=== PATIENT | male | born 1965 ===

== ENCOUNTER 2021-02-10 07:06 | Day surgery (SDC) | payer OTHER ==
[2021-02-06 16:02] VITALS: BMI 26.4
[2021-02-10] MEDS ORDERED: SODIUM CHLORIDE 0.9% 1,000 ML IV ONE (07:10)
[2021-02-10 07:38] VITALS: RESP 16; TEMP 98.1
[2021-02-10] MEDS ORDERED: fentaNYL (PF) 50 MCG/ML 2 ML AMP ONE (08:34)
[2021-02-10] MEDS ORDERED: LIDOCAINE 1% INJ 10MG/ML (20 ML MDV) ONE (08:36)
[2021-02-10] MEDS ORDERED: VERAPAMIL 2.5 MG/ML 2 ML AMP ONE (08:36)
[2021-02-10] MEDS: MIDAZOLAM 2 MG/2 ML VIAL IV ONE ×2 (08:48→08:51)
[2021-02-10] MEDS ORDERED: LIDOCAINE 1% INJ 10MG/ML (20 ML MDV) SQ ONE (08:48)
[2021-02-10] MEDS ORDERED: fentaNYL (PF) 50 MCG/ML 2 ML AMP IV ONE (08:48)
[2021-02-10] MEDS ORDERED: IOPAMIDOL-250 100ML BTL INTRAARTER ONE (09:11)
[2021-02-10] MEDS ORDERED: IOPAMIDOL-250 50ML BTL INTRAARTER ONE (09:12)
--- NOTE | 2021-02-10 09:24 | P.OP ---
Date of Procedure: 02/10/21 Description of Procedure: Preoperative diagnosis: Right lower extremity claudication with rest pain [place] 4 Postop diagnosis: Same, right superficial femoral artery occlusion and bilateral anterior tibial artery occlusions Procedure: Aortogram with bilateral lower extremity runoffs via left radial artery access under ultrasound guidance Surgeon: Ceasar Anesthesia: Moderate sedation times 23 minutes Estimated blood loss: 5 mL Complications: None Condition: Stable Findings: Aorta: Atherosclerotic, calcific disease throughout without significant stenosis. Bilateral renal arteries are patent without any significant stenosis. Iliacs: Bilateral common iliac, internal iliac and external iliac arteries are calcified and atherosclerotic without any significant stenosis. Femorals: Right common femoral artery with atherosclerotic and calcific disease throughout without any significant stenosis. Profundus is patent. SFA is occluded at the takeoff with significant calcific disease extending throughout with reconstitution [id number] at the popliteal. Left common femoral, p rofunda and superficial femoral artery are atherosclerotic with calcific disease throughout without significant stenosis. Popliteal: Bilateral popliteal arteries are patent with minimal atherosclerotic, calcific disease without any significant stenosis. Tibials: Bilateral tibioperoneal trunk is patent without significant disease. The anterior tibial arteries bilaterally are occluded after the takeoff. Posterior tibial and peroneal arteries are patent with significant atherosclerotic disease throughout. Runoff to the ankle as noted. Operative narrative: After written informed consent was obtained the patient all risks benefits competitions were described the patient is brought to the Scientific Photographer and laid in a supine position. The area of the left wrist was prepped and draped in the usual sterile fashion. Local anesthesia with moderate sedation was performed with continuous pulse ox monitoring and EKG monitoring. Utilizing ultrasound the left radial artery was visualized and shown to be patent without any significant plaque. Utilizing a multipurpose needle under ultrasound guidance the artery was accessed. Guidewire was placed followed by 5-Honduran sheath. 035 Glidewire was then placed into the aorta followed by pigtail catheter. Angiogram was then obtained of the aorta. Catheter was then placed at the bifurcation and lower extremity runoffs were obtained. Once completed all guidewires, catheters and sheaths were removed and pressure was placed for hemostasis. Patient tolerated procedure well was sent to PACU for recovery Plan - Discharge Summary Discharge Rx Participant: No New Discharge Prescriptions: No Action oxyCODONE HCL [oxyCODONE HCL ER] 15 mg PO Q6H amLODIPine [Norvasc] 5 mg PO DAILY Thiamine HCl [Vitamin B-1] 100 mg PO HS QUEtiapine [SEROquel] 200 mg PO HS predniSONE 10 mg PO DIRECTED Atorvastatin [Lipitor] 20 mg PO DAILY Discharge Medication List Atorvastatin [Lipitor] 20 mg PO DAILY 02/06/21 [History] QUEtiapine [SEROquel] 200 mg PO HS 02/06/21 [History] Thiamine HCl [Vitamin B-1] 100 mg PO HS 02/06/21 [History] amLODIPine [Norvasc] 5 mg PO DAILY 02/06/21 [History] oxyCODONE HCL [oxyCODONE HCL ER] 15 mg PO Q6H 02/06/21 [History] predniSONE 10 mg PO DIRECTED 02/06/21 [History] Follow up Appointment(s)/Referral(s): Kodak Mcdonough DO [STAFF PHYSICIAN] - 1 Week Discharge Disposition: HOME SELF-CARE
[2021-02-10] MEDS ORDERED: oxyCODONE ER 15 MG TAB.ER.12H PO STA (09:31)
[2021-02-10] MEDS ORDERED: amLODIPine 5 MG TAB ONE (09:32)
[2021-02-10 11:39] VITALS: BP 112/79; PULSE 96
--- NOTE | 2021-02-10 11:47 | IR ---
Fluoroscopy HISTORY: Peripheral Vascular occlusive disease 2.2 minutes fluoroscopy time supplied to the referring clinician. 153 intraoperative C-arm images do cument the procedure. See dictated report from vascular surgery.
== END 2021-02-10 12:05 | disposition home or self-care (01) ==
LOC: CATHCVL 07:06
PROVIDERS: ATTEND Surgery
DX: I73.9 Peripheral vascular disease, unspecified (principal); Z20.822 Contact with and (suspected) exposure to COVID-19; Z87.891 Personal history of nicotine dependence
CPT/HCPCS: 76000; 36200; 75625; 75716; 76937; 87635; C1894; C1769; J2250; J2001; J3010; Q9966 ×2

== ENCOUNTER 2021-04-03 09:56 | Inpatient (IN) | payer OTHER ==
[2021-03-30 18:12] VITALS: BMI 26.4
[~2021-04-03 09:56] MED LIST: DEXAMETHASONE SOD PHOSPHATE 4 MG/ML 1 ML VIAL IV ONE; MIDAZOLAM 2 MG/2 ML VIAL IV PRN; ONDANSETRON 4 MG/2 ML VIAL IVP ONE; SCOPOLAMINE 1.5MG/72HR PATCH TRANSDERM ONE
[2021-04-03] MEDS: LACTATED RINGERS 1,000 ML IV SCH (11:00)
[2021-04-03] MEDS ORDERED: MIDAZOLAM 2 MG/2 ML VIAL IVP ONE (11:21)
[2021-04-03] MEDS ORDERED: LIDOCAINE 1% INJ 10MG/ML (20 ML MDV) ONE (13:12)
[2021-04-03] MEDS ORDERED: HEPARIN SODIUM,PORCINE 10,000 UNIT/ML 1 ML VIAL ONE (13:12)
[2021-04-03] MEDS ORDERED: GLYCOPYRROLATE 0.2 MG/ML 2 ML VIAL ONE (13:12)
[2021-04-03] MEDS ORDERED: HYDROmorphone (PF) 1 MG/ML ONE (13:12)
[2021-04-03] MEDS ORDERED: SUCCINYLCHOLINE CHLORIDE 100 MG/5 ML SYR IV ONE (13:12)
[2021-04-03] MEDS ORDERED: NEOSTIGMINE 1 MG/ML 10 ML VIAL ONE (13:12)
[2021-04-03] MEDS ORDERED: MIDAZOLAM 2 MG/2 ML VIAL ONE (13:12)
[2021-04-03] MEDS ORDERED: .fentaNYL (PF) 50 MCG/ML AMP ONE (13:12)
[2021-04-03] MEDS ORDERED: ROCURONIUM 10 MG/ML (5 ML VIAL) IV ONE (13:12)
[2021-04-03] MEDS ORDERED: PROPOFOL 10 MG/ML 20 ML VIAL IV ONE (13:12)
[2021-04-03] MEDS ORDERED: ceFAZolin 2,000 MG in SODIUM CHLORIDE 0.9% 500 ML IRRIGATION ONE ×4 (13:45)
[2021-04-03] MEDS ORDERED: SODIUM CHLORIDE 0.9% 500 ML 500 ML with HEPARIN SODIUM,PORCINE 2,000 UNIT IV ONE ×4 (13:46)
[2021-04-03] MEDS ORDERED: IOPAMIDOL-370 50ML BTL IRRIGATION ONE (14:16)
[2021-04-03] MEDS ORDERED: IOPAMIDOL-370 50ML BTL INJ ONE ×2 (14:16)
[2021-04-03] MEDS ORDERED: LACTATED RINGERS 1,000 ML IV ONE ×2 (14:20→18:09)
[2021-04-03] MEDS ORDERED: THROMBIN (BOVINE) 5,000 UNIT VIAL TOPICAL ONE (15:25)
[2021-04-03] MEDS ORDERED: GELATIN SPONGE,ABSORB (SMALL) 1 EACH SPONGE TOPICAL ONE (15:26)
[2021-04-03] MEDS ORDERED: HYDROcodone/APAP 5-325MG 1 EACH TAB PO PRN (17:26)
[2021-04-03] MEDS ORDERED: PANTOPRAZOLE 40 MG TABLET PO SCH (17:30)
[2021-04-03] MEDS: HYDROmorphone 0.5 MG/0.5 ML SYRINGE IVP PRN ×3 (17:41→18:14)
--- NOTE | 2021-04-03 17:41 | FL ---
Fluoroscopy History: RIGHT FEMORAL ENDARTERECTOMY 24 MIN 38 SEC FL
--- NOTE | 2021-04-03 18:43 | P.OP ---
Date of Procedure: 04/03/21 Preoperative Diagnosis: Right lower extremity critical limb ischemia [place] 4 Right femoral, profundus femoris and superficial femoral artery occlusive disease Postoperative Diagnosis: same Procedure(s) Performed: 1. Right femoral and profunda endarterectomy with patch angioplasty 2. Right femoral-popliteal angiogram 3. Ultrasound guided right superficial femoral retrograde access 4. Transluminal balloon angioplasty of the right superficial femoral artery 5. Transluminal stenting of the right superficial femoral artery with covered Viabahn [id number] and [id number] stents 6. Right femoral-popliteal and tibial angiogram 3rd order catheter placement Surgeon: Kodak Mcdonough Director Retail Brand Development #1: Hortencia Leonard Estimated Blood Loss (ml): 150 Pathology: other (femoral plaque) Condition: stable Disposition: PACU Indications for Procedure: 55 year old gentleman with history of right lower extremity claudication and rest pain with previous angiogram demonstrating right common femoral and superficial femoral artery occlusion with profundus femoral artery disease presents today for femoral endarterectomy and possible fem-pop bypass vs. stenting. Description of Procedure: After written and informed consent was obtained from the patient and all risks, benefits and complications were discussed the patient was brought to the operating room and laid in a supine position. The abdomen and right lower extremity were then prepped and draped in the usual sterile fashion. Antibiotics were given and timeout performed in usual fashion. An oblique incision was created with a 10 blade scalpel at the groin and dissection was carried down to the common femoral artery. The common femoral, profunda and superficial femoral artery were dissected free in a circumferential manner and controlled with vessel loops. Patient was given heparin and followed with serial ACTs and re-dosed as needed. The vessel was then clamped and arteriotomy was created with an 11 blade scalpel and extended with Anglin Moffett scissors. Endarterectomy was then performed and plaque was dense and extended to the profunda and eversion endarterectomy was performed of the profunda. There was dense plaque extending to the superficial femoral artery which was occluded. No backbleeding was noted. Once plaque was removed and good pulsatile inflow was obtained a 0.8x8cm patch was chosen and patch angioplasty was performed. Once completed, control was released and patch was then accessed with a multipurpose needle and wire was placed followed by a 7F sheath. Femoral angiogram was obtained demonstrating occlusion of the superficial femoral artery with reconstitution at the distal superficial femoral artery via a large collateral. Attempt with an 035 glidwire and quickcross catheter to cross the lesion was unsuccessful and therefore retrograde access at the distal superficial femoral artery was performed under ultrasound guidance. Wire was placed into the occlusion and a 5F sheath was placed. An 035 glidewire was then placed in a retrograde fashion across the lesion to the common femoral artery and 7F sheath was removed and via patchotomy site the wire was retrieved and placed through the 7F sheath which was re-advanced. The quickcross catheter was then removed and placed in an antegrade fashion through the 7F sheath and directed past the occlusion into the popliteal artery and retraction of the 5F sheath. Confirmation angiogram was obtained demonstrating good intra lumen access. Balloon angioplasty was then performed with a [id number] balloon x multiple within the superficial femoral artery up to the common femoral artery. A [id number] Viabahn stent was then chosen and deployed across the lesion as well as the retrograde access site. Another [id number] Viabahn stent was then placed to the superficial femoral artery takeoff. Once completed a completion angiogram was obtained demonstrating complete resolution of the occlusion with brisk flow through the profunda, superficial femoral artery with 2 vessel runoff to the ankle. All guidewires and catheters were removed and sheath was removed and patchotomy was closed with 6-0 prolene suture. Hemostasis was then achieved with surgicel. The incision was irrigated with antibiotic solution and closed in a multi-layer fashion. The skin was cleansed and Prevena incisional vac was placed. The patient tolerated the procedure well and had palpable DP and PT pulse on the right and was sent to PACU for recovery.
[2021-04-03] MEDS: oxyCODONE ER 15 MG TAB.ER.12H PO SCH ×2 (19:47→21:19)
[2021-04-03] MEDS: SODIUM CHLORIDE 0.9% 1,000 ML IV SCH (19:49)
[2021-04-03] MEDS ORDERED: METOPROLOL SUCCINATE (ER) 25 MG TAB.ER.24H PO SCH (21:00)
[2021-04-03] MEDS ORDERED: QUEtiapine 200 MG TAB PO SCH (21:00)
[2021-04-03 21:24] LABS: Basophils # (A) 0.1 k/uL (0-0.2); Basophils % (A) 0 %; Eosinophils # (A) 0.1 k/uL (0-0.7); Eosinophils % (A) 1 %; HCT 45.3 % (39.0-53.0); HGB 15.4 gm/dL (13.0-17.5); Lymphocytes # (A) 1.2 k/uL (1.0-4.8); Lymphocytes % (A) 9 %; MCH 32.6 pg (25.0-35.0); Mean Platelet Volume 7.6; Monocytes # (A) 0.6 k/uL (0-1.0); Monocytes % (A) 4 %; Neutrophils # (A) 11.5 k/uL (1.3-7.7); Neutrophils % (A) 85 %; Platelet Count 249 k/uL (150-450); RBC 4.72 m/uL (4.30-5.90); RDW 12.9 % (11.5-15.5); WBC 13.6 k/uL (3.8-10.6)
[2021-04-04] MEDS: LACTATED RINGERS 1,000 ML IV SCH (00:45)
[2021-04-04] MEDS: MORPHINE SULFATE 2 MG/ML SYRINGE IVP PRN ×4 (02:36→13:26)
[2021-04-04] MEDS ORDERED: CHOLECALCIFEROL 25 MCG (1000 IU) TABLET PO SCH (09:00)
[2021-04-04] MEDS ORDERED: ATORVASTATIN 20 MG TAB PO SCH (09:00)
[2021-04-04] MEDS ORDERED: amLODIPine 5 MG TAB PO SCH (09:00)
[2021-04-04] MEDS: oxyCODONE ER 15 MG TAB.ER.12H PO SCH ×2 (09:22→13:21)
[2021-04-04] MEDS: SODIUM CHLORIDE 0.9% 1,000 ML IV SCH (09:25)
[2021-04-04 13:15] VITALS: BP 128/82; PULSE 96; RESP 18; TEMP 97.9
--- NOTE | 2021-04-04 13:49 | P.DS ---
Providers Date of admission: 04/03/21 09:56 Attending physician: Kodak Mcdonough DO Consults: 04/03/21 17:26 Consult Physician Routine Consulting Provider: Yoselin Mora Consult Reason/Comments: medical management Do you want consulting provider notified?: Yes Primary care physician: Yoselin Mora [place] [facility] Course: Stanley Is a 55-year-old male who underwent a right femoral endarterectomy and percutaneous transluminal stent of the right superficial femoral artery on 04/03/2021. His tolerated the procedure well and is recovering. He states he has some burning in his thigh but otherwise feels well. He states that his heel feels much better than it did review sleep. He has not ambulated a significant amount of distance to know if his Pain is improved. He denies any issue otherwise of that his chronic pain. At the time of evaluation on postoperative day 1 he is found to be in stable condition and satisfactory for discharge home. He will be started on Plavix and twice a day Xarelto 2.5 mg as well as gabapentin. He will follow up with us in 2 weeks' time Plan - Discharge Summary Discharge Rx Participant: Yes New Discharge Prescriptions: New Atorvastatin Calcium [Lipitor] 40 mg PO HS #30 tablet Rivaroxaban [Xarelto] 2.5 mg PO BID #60 tablet Nicotine 21Mg/24Hr Patch [Habitrol] 1 each TRANSDERM DAILY #14 patch Gabapentin 300 mg PO TID 30 Days #90 cap Clopidogrel [Plavix] 75 mg PO DAILY #30 tablet Aspirin 81 mg PO DAILY #30 tab Budesonide/Formoterol Fumarate [Symbicort 80-4.5 Mcg Inhaler] 1 puff INHALATION BID #10.2 gm Continue oxyCODONE HCL [oxyCODONE HCL ER] 15 mg PO QID amLODIPine [Norvasc] 5 mg PO DAILY Omeprazole [PriLOSEC] 20 mg PO AC-SUPPER Cholecalciferol [Vitamin D3 (25 Mcg = 1000 Iu)] 25 mcg PO DAILY QUEtiapine [SEROquel] 200 mg PO HS Metoprolol Succinate [Toprol XL] 25 mg PO HS Discontinued Atorvastatin [Lipitor] 20 mg PO DAILY Discharge Medication List QUEtiapine [SEROquel] 200 mg PO HS 02/06/21 [History] amLODIPine [Norvasc] 5 mg PO DAILY 02/06/21 [History] oxyCODONE HCL [oxyCODONE HCL ER] 15 mg PO QID 02/06/21 [History] Cholecalciferol [Vitamin D3 (25 Mcg = 1000 Iu)] 25 mcg PO DAILY 03/30/21 [History] Metoprolol Succinate [Toprol XL] 25 mg PO HS 03/30/21 [History] Omeprazole [PriLOSEC] 20 mg PO AC-SUPPER 03/30/21 [History] Aspirin 81 mg PO DAILY #30 tab 04/04/21 [Rx] Atorvastatin Calcium [Lipitor] 40 mg PO HS #30 tablet 04/04/21 [Rx] Budesonide/Formoterol Fumarate [Symbicort 80-4.5 Mcg Inhaler] 1 puff INHALATION BID #10.2 gm 04/04/21 [Rx] Clopidogrel [Plavix] 75 mg PO DAILY #30 tablet 04/04/21 [Rx] Gabapentin 300 mg PO TID 30 Days #90 cap 04/04/21 [Rx] Nicotine 21Mg/24Hr Patch [Habitrol] 1 each TRANSDERM DAILY #14 patch 04/04/21 [Rx] Rivaroxaban [Xarelto] 2.5 mg PO BID #60 tablet 04/04/21 [Rx] Follow up Appointment(s)/Referral(s): Yoselin Mora MD [Primary Care Provider] - 1 Week Kodak Mcdonough DO [STAFF PHYSICIAN] - 1 Week Activity/Diet/Wound Care/Special Instructions: Leave wound VAC dressing in place for 1 week. May discard after 1 week. May shower after the wound VAC has been discarded. No driving. Await follow-up for further recommendations Discharge Disposition: HOME SELF-CARE
--- NOTE | 2021-04-04 15:38 | P.CONS ---
History of Present Illness - Reason for Consult Consult date: 04/04/21 Medical management Requesting physician: Kodak Mcdonough - Chief Complaint Leg pain - History of Present Illness This is a pleasant 55-year-old patient Dr. Yoselin Mora. Chronic stable medical conditions include COPD, GERD, hypertension, hyperlipidemia, osteoarthritis multiple joints including the neck. Patient long-standing smoker. Has been having significant claudication especially in the right leg. Suspicion walking less than 50 feet patient's consent getting cramping in the right calf. Patient had an angiogram that showed right common femoral, superficial femoral artery occlusion with profundus femoral artery disease. Patient underwent angioplasty/stenting/patch angioplasty of the right lower extremity. This morning patient has slight numbness in the leg. Baseline some shortness of breath and wheezing. Cough. Clear sputum. No chest pain. Appeti te fair. No nausea vomiting. Review of systems: GEN.: None EYES: None HEENT: None NECK: None RESPIRATORY: As above CARDIOVASCULAR: None GASTROINTESTINAL: Heartburn GENITOURINARY: None MUSCULOSKELETAL: Multiple joint pains LYMPHATICS: None HEMATOLOGICAL: None PSYCHIATRY: None NEUROLOGICAL: As above Past medical history to include: COPD, GERD, hypertension, hyperlipidemia, PAD, Social history: Smokes pack and a half for close to 35 years. Sick drinks anywhere from 6-15 beers a day. Lives with his girlfriend Mara. Last drink was over 3 days ago Family history: Reviewed, noncontributory to presentation Physical examination: VITAL SIGNS: 97.3, 95, 20, 1 23 x 68, 92% on room air GENERAL: BMI 26.6, reclining in bed awake, not in distress. EYES: Pupils equal. Conjunctiva normal. HEENT: External appearance of nose and ears normal, oral cavity grossly normal. NECK: JVD not raised; masses not palpable. HEART: First and second heart sounds are normal; no edema. LUNGS: Respiratory rate normal; decreased breath sounds and wheezing. ABDOMEN: Soft, nontender, liver spleen not palpable, no masses palpable. PSYCH: Alert and oriented x3; mood and affect normal. NEUROLOGICAL: Cranial nerves grossly intact; no facial asymmetry, power and sensation grossly intact. EXTREMITY: Warm and perfused distally LYMPHATICS: No lymph nodes palpable in the axilla and neck INVESTIGATIONS, reviewed in the clinical context: White count 13.6 hemoglobin 15.4 platelets 249 Assessment and plan: -Procedure: Right femoral and profunda endarterectomy with patch angioplasty, right femoral-popliteal angiogram, balloon angioplasty of the right superficial femoral artery, stenting of the right superficial femoral artery with stent -PAD in a smoker Patient is being started on Plavix. We will also add xarelto 2.5 mg by mouth twice a day. Increase dose of Lipitor 40 mg by mouth daily -COPD in a current smoker Add Symbicort 80/4.5]: 1 puff twice a day -Chronic nicotine dependence, cigarette smoker Nicotine patch 21. -Essential hypertension Norvasc 5 mg daily, Toprol-XL 25 mg daily at bedtime -Hyperlipidemia Lipitor -GERD Prilosec 20 mg daily -Alcohol use disorder Patient counseled Patient will be put on Plavix. Xarelto 2.5 mg twice a day. Increase dose of Lipitor to 40 mg daily at bedtime. Symbicort. Nicotine patch. Patient to follow-up this family doctor in the weak. Discussed with the patient. Discussed with Dr. Leonard from vascular. Thank you Dr. Mcdonough Past Medical History Past Medical History: COPD, GERD/Reflux, Hyperlipidemia, Hypertension, Vascular Disorder Additional Past Medical History / Comment(s): back pain & spasms,. hx neck surgery,. cant lay flat with neck issues, need to be propped up. becomes dizzy when sits up @times History of Any Multi-Drug Resistant Organisms: None Reported Past Surgical History: Hernia Repair, Orthopedic Surgery Additional Past Surgical History / Comment(s): amputation rt index finger,reattachment of the lt hand thumb, neck fusion, attempted neck fusion with infection to larynx, lt hand surgery, lt carpal tunnel surgery, release in lt elbow, aortogram Past Anesthesia/Blood Transfusion Reactions: Previous Problems w/ Anesthesia Additional Past Anesthesia/Blood Transfusion Reaction / Comm: woke up during carpal tunnel surgery, woke up @end of neck surgery before was supposed to,. unable to lay flat d/t neck pain-needs to have head elevated Past Psychological History: Panic Disorder, PTSD Additional Psychological History / Comment(s): ptsd r/t hospital experience in past, very anxious about this upcoming surgery Smoking Status: Current every day smoker Past Alcohol Use History: Abuse, Daily Additional Past Alcohol Use History / Comment(s): 1 1/2 ppd for 35 yrs., 6-15 beers daily Past Drug Use History: None Reported Medications and Allergies Home Medications Medication Instructions Recorded Confirmed Type QUEtiapine [SEROquel] 200 mg PO HS 02/06/21 03/30/21 History amLODIPine [Norvasc] 5 mg PO DAILY 02/06/21 03/30/21 History oxyCODONE HCL [oxyCODONE HCL ER] 15 mg PO QID 02/06/21 03/30/21 History Cholecalciferol [Vitamin D3 (25 25 mcg PO DAILY 03/30/21 03/30/21 History Mcg = 1000 Iu)] Metoprolol Succinate [Toprol XL] 25 mg PO HS 03/30/21 03/30/21 History Omeprazole [PriLOSEC] 20 mg PO AC-SUPPER 03/30/21 03/30/21 History Aspirin 81 mg PO DAILY #30 tab 04/04/21 Rx Atorvastatin Calcium [Lipitor] 40 mg PO HS #30 tablet 04/04/21 Rx Budesonide/Formoterol Fumarate 1 puff INHALATION BID #10.2 gm 04/04/21 Rx [Symbicort 80-4.5 Mcg Inhaler] Clopidogrel [Plavix] 75 mg PO DAILY #30 tablet 04/04/21 Rx Gabapentin 300 mg PO TID 30 Days #90 cap 04/04/21 Rx Nicotine 21Mg/24Hr Patch [Habitrol] 1 each TRANSDERM DAILY #14 patch 04/04/21 Rx Rivaroxaban [Xarelto] 2.5 mg PO BID #60 tablet 04/04/21 Rx Allergies Allergy/AdvReac Type Severity Reaction Status Date / Time No Known Allergies Allergy Verified 03/30/21 18:09 Physical Exam Vitals: Vital Signs Temp Pulse Resp BP Pulse Ox 04/04/21 09:21 97.3 F L 95 20 123/68 94 L 04/04/21 03:37 97.5 F L 83 20 113/63 94 L 04/03/21 23:05 97.2 F L 110 H 20 131/81 91 L 04/03/21 21:13 100 20 118/68 04/03/21 20:05 98 20 130/73 04/03/21 19:35 96.8 F L 83 20 146/86 93 L 04/03/21 18:45 78 16 138/85 94 L 04/03/21 18:31 78 16 142/87 94 L 04/03/21 18:16 97.9 F 80 16 145/93 94 L 04/03/21 18:00 79 16 141/97 98 04/03/21 17:45 88 18 132/91 98 04/03/21 17:29 97.9 F 106 H 146/90 98 Intake and Output 04/03/21 04/04/21 04/04/21 22:59 06:59 14:59 Intake Total 494 1200 240 Output Total 800 1800 1600 Balance -306 -954 -8805 Intake: IV 50 Intake, IV Titration 1200 Amount Sodium Chloride 0.9% 1, 1200 000 ml @ 100 mls/hr IV . Q10H ON LICENSE OF [facility] Rx#:[id number] Oral 444 240 Output: Urine 650 1800 1600 Uretheral (Leonard) 400 Estimated Blood Loss 150 Other: Voiding Method Indwelling Catheter Indwelling Catheter Indwelling Catheter Weight 86.6 kg Results CBC & Chem 7: 04/03/21 20:53 Labs: Abnormal Lab Results - Last 24 Hours (Table) 04/03/21 Range/Units 20:53 WBC 13.6 H (3.8-10.6) k/uL Neutrophils # 11.5 H (1.3-7.7) k/uL
== END 2021-04-04 15:33 | disposition home or self-care (01) | DRG 254 ==
LOC: 2ORMAIN 09:56 → 3SCARD 18:19
PROVIDERS: ADMIT Surgery; ATTEND Surgery
PROC: 04CK0ZZ Extirpation of Matter from Right Femoral Artery, Open Approach (ICD-10-PCS; 2021-04-03)
PROC: 04UK3JZ Supplement Right Femoral Artery with Synthetic Substitute, Percutaneous Approach (ICD-10-PCS; 2021-04-03)
PROC: B41F1ZZ Fluoroscopy of Right Lower Extremity Arteries using Low Osmolar Contrast (ICD-10-PCS; 2021-04-03)
PROC: 047K3DZ Dilation of Right Femoral Artery with Intraluminal Device, Percutaneous Approach (ICD-10-PCS; principal; 2021-04-03 13:30)
PROC: 047K3ZZ Dilation of Right Femoral Artery, Percutaneous Approach (ICD-10-PCS; 2021-04-03 13:30)
DX: I70.221 Atherosclerosis of native arteries of extremities with rest pain, right leg (principal); E78.5 Hyperlipidemia, unspecified; F10.10 Alcohol abuse, uncomplicated; F17.210 Nicotine dependence, cigarettes, uncomplicated; F41.0 Panic disorder [episodic paroxysmal anxiety]; F43.10 Post-traumatic stress disorder, unspecified; Z20.822 Contact with and (suspected) exposure to COVID-19; I10 Essential (primary) hypertension; J44.9 Chronic obstructive pulmonary disease, unspecified; K21.9 Gastro-esophageal reflux disease without esophagitis; M15.9 Polyosteoarthritis, unspecified; Z79.01 Long term (current) use of anticoagulants; Z79.02 Long term (current) use of antithrombotics/antiplatelets; Z79.51 Long term (current) use of inhaled steroids; Z79.82 Long term (current) use of aspirin; Z79.899 Other long term (current) drug therapy; Z98.1 Arthrodesis status; Z89.021 Acquired absence of right finger(s); Z87.19 Personal history of other diseases of the digestive system
CPT/HCPCS: 85025; 86850; 86900; 86901; 87635; 88304; 88311

== ENCOUNTER 2022-08-15 15:17 | Emergency (ER) | payer OTHER ==
[2022-08-15 15:33] VITALS: TEMP 98.2
[2022-08-15] MEDS ORDERED: PANTOPRAZOLE 40 MG/10 ML VIAL IVP STA (15:46)
[2022-08-15] MEDS ORDERED: ONDANSETRON 4 MG/2 ML VIAL IVP STA (15:46)
[2022-08-15] MEDS ORDERED: SODIUM CHLORIDE 0.9% 1,000 ML IV STA ×2 (15:46→16:39)
[2022-08-15 16:12] LABS: Anisocytosis Moderate; Basophils % (A) 0 %; Eosinophils # (A) 0.2 k/uL (0-0.7); Eosinophils % (A) 2 %; HGB 13.1 gm/dL (13.0-17.5); Lymphocytes # (A) 1.7 k/uL (1.0-4.8); Lymphocytes % (A) 15 %; MCH 29.7 pg (25.0-35.0); MCHC 31.9 g/dL (31.0-37.0); MCV 93.1 fL (80.0-100.0); Mean Platelet Volume 7.3; Microcytosis Slight; Monocytes % (A) 9 %; Neutrophils # (A) 8.3 k/uL (1.3-7.7); Neutrophils % (A) 73 %; Platelet Count 417 k/uL (150-450); RDW 20.3 % (11.5-15.5); WBC 11.4 k/uL (3.8-10.6)
[2022-08-15 16:25] LABS: ALT 27 U/L (4-49); AST 29 U/L (17-59); African American GFR (CKD) >90 (>60 ml/min/1.73 sqM); Albumin 3.6 g/dL (3.5-5.0); Alkaline Phosphatase 86 U/L (38-126); Anion Gap 8 mmol/L; Blood Urea Nitrogen <2 mg/dL (9-20); Calcium 8.8 mg/dL (8.4-10.2); Carbon Dioxide 25 mmol/L (22-30); Chloride 102 mmol/L (98-107); Glucose 105 mg/dL (74-99); Magnesium 1.9 mg/dL (1.6-2.3); Non-African American GFR(CKD) >90 (>60 ml/min/1.73 sqM); Potassium 3.8 mmol/L (3.5-5.1); Sodium 135 mmol/L (137-145); Total Bilirubin 0.3 mg/dL (0.2-1.3); Total Protein 6.1 g/dL (6.3-8.2)
[2022-08-15 16:26] LABS: Partial Thromboplastin Time 26.1 sec (22.0-30.0); Prothrombin Time 10.4 sec (9.0-12.0)
--- NOTE | 2022-08-15 16:32 | XR ---
EXAMINATION TYPE: XR chest 1V portable DATE OF EXAM: 08/15/2022 4:15 PM COMPARISON: None TECHNIQUE: XR chest 1V portable Frontal view of the chest. CLINICAL INDICATION:Male, 56 years old with history of pain; FINDINGS: Lungs/Pleura: Prominent interstitial lung markings are seen scattered throughout the lungs with nerissa ening of the diaphragm and increased lucency of the lung apices. No evidence of focal consolidation, pneumothorax or pleural effusion. Pulmonary vascularity: Unremarkable. Heart/mediastinum: Cardiomediastinal silhouette is unremarkable. Musculoskeletal: No acute osseous pathology. There is fixation hardware in the lower cervical spine. Other findings: None IMPRESSION: COPD changes and chronic interstitial changes without evidence for acute process.
[2022-08-15] MEDS ORDERED: LORazepam 0.5 MG TAB PO STA (16:39)
--- NOTE | 2022-08-15 17:34 | CT ---
EXAMINATION TYPE: CT angio abdomen pelvis CT DLP: 2115.9 mGycm, Automated exposure control for dose reduction was used. DATE OF EXAM: 08/15/2022 5:12 PM COMPARISON: None CLINICAL INDICATION:Male, 56 years old with history of GI bleed protocol;, dark stools, r/o GI bleed and weakness x1 week TECHNIQUE: Multiple thin slice sub-millimeter images were obtained through the abdomen, pelvis, after administration of contrast. Maximum intensity projection images were obtained of the abdomen, pelvi s. CT Contrast: Contrast used:100 mL of Isovue 370 with IV Contrast, Oral contrast used: without Oral Contrast None FINDINGS: LOWER CHEST: Bilateral lower lobe interstitial opacities. There is ground glass opacities in the righ t lower lobe. Mild centrilobular emphysema changes are present. LIVER: Diffusely hypoattenuating parenchyma. GALLBLADDER AND BILE DUCTS: Unremarkable. PANCREAS: Unremarkable. SPLEEN: Unremarkable. ADRENAL GLANDS: Unremarkable. KIDNEYS AND URETERS: No evidence of hydronephrosis or renal calculus. The ureters are unremarkable. PELVIS BLADDER: Bladder is distended. REPRODUCTIVE: Unremarkable. ABDOMEN & PELVIS STOMACH AND BOWEL: Evaluation of the gastrointestinal tract demonstrates no evidence of high density hemorrhage arterial phase or pooling of blood on delayed phases. No evidence of bowel obstruction. Ap pendix is normal. PERITONEUM: No evidence of pneumoperitoneum or free fluid. VASCULATURE: No evidence of aortic aneurysm. Moderate to severe atherosclerosis of the arterial vascu lature. The origins of the major vessels of the abdominal aorta including the celiac axis, superior m esenteric artery bilateral renal arteries and inferior mesenteric artery are patent. MUSCULOSKELETAL: No acute osseous abnormalities LYMPH NODES: No gross evidence for lymphadenopathy. SOFT TISSUE/ABDOMINAL WALL: Fat-containing left inguinal hernia. IMPRESSION: 1. No CT evidence for gastrointestinal hemorrhage. If there remains concern consider nuclear medicin e tagged red blood cell scan. 2. Sequela prior infection in the right lower lobe versus sequela of aspiration. 3. Moderate severe atherosclerosis of the arterial vasculature. 4. Mild emphysema changes. 5. Hepatic steatosis.
[2022-08-15 18:00] LABS: Appearance,Urine Clear (Clear); Bilirubin,Urine Negative (Negative); Blood,Urine Negative (Negative); Color,Urine Colorless; Glucose,Urine (UA) Negative (Negative); Ketones,Urine Negative (Negative); Leukocyte Esterase,Urine Trace (Negative); Nitrite,Urine Negative (Negative); Protein,Urine Negative (Negative); Specific Gravity,Urine 1.022 (1.001-1.035); Urobilinogen,Urine <2.0 mg/dL (<2.0); WBC,Urine 4 /hpf (0-5)
[2022-08-15] MEDS ORDERED: AMOXIC-POT CLAV 875-125MG 1 EACH TAB PO STA (18:04)
[2022-08-15] MEDS ORDERED: DEXAMETHASONE SOD PHOSPHATE 10 MG/ML 1 ML VIAL IVP STA (18:05)
--- NOTE | 2022-08-15 18:06 | ED ---
General Adult HPI - General Chief complaint: GI Bleed Stated complaint: light headed Time Seen by Provider: 08/15/22 15:34 Source: patient, RN notes reviewed, old records reviewed Mode of arrival: wheelchair Limitations: no limitations - History of Present Illness Initial comments: Patient is a 56-year-old male with past medical history remarkable for COPD, hypertension, vascular disease status post stenting in the right lower extremity on xeralto who presents emergency Department complaining of a chronic but acutely worsening productive cough of thick or sputum, generalized weakness, as well as 1 month or longer of dark black tarry stools. This has been worked up outpatient with his PCP and patient is due to receive a colonoscopy but had to recently canceled due to a recent fever. Has not been on recent antibiotics. Is uncertain what is currently causing his symptoms. Denies any chest pain. Endorses shortness of breath with the coughing. He is compliant with his medications. Endorses normal stool shape inform however is dark and tarry for the last 4-6 weeks. Denies any hematemesis. Denies any hematochezia. Endorses nonspecific generalized abdominal discomfort. Has no other acute complaints at this time. Presents for further evaluation time. Denies any fevers, sick contacts. Does have a history of COPD. Is not on oxygen. - Related Data Home Medications Medication Instructions Recorded Confirmed amLODIPine [Norvasc] 5 mg PO DAILY 02/06/21 08/15/22 Budesonide/Formoterol Fumarate 2 puff INHALATION RT-BID 08/15/22 08/15/22 [Symbicort 80-4.5 Mcg Inhaler] Ferrous Sulfate [Feosol] 325 mg PO HS 08/15/22 08/15/22 Fluticasone Nasal [place] [Flonase 1 spr EA NOSTRIL DAILY 08/15/22 08/15/22 Nasal [place]] QUEtiapine FUMARATE [SEROquel] 300 mg PO HS 08/15/22 08/15/22 oxyCODONE HCL [oxyCODONE HCL (IR)] 15 mg PO QID 08/15/22 08/15/22 Previous Rx's Medication Instructions Recorded Aspirin 81 mg PO DAILY #30 tab 04/04/21 Atorvastatin Calcium [Lipitor] 40 mg PO HS #30 tablet 04/04/21 Clopidogrel [Plavix] 75 mg PO DAILY #30 tablet 04/04/21 Rivaroxaban [Xarelto] 2.5 mg PO BID #60 tablet 04/04/21 Amoxic-Pot Clav 875-125Mg 1 tab PO Q12HR 7 Days #14 tab 08/15/22 [Augmentin 875-125] Allergies Allergy/AdvReac Type Severity Reaction Status Date / Time No Known Allergies Allergy Verified 08/15/22 17:39 Review of Systems ROS Statement: Those systems with pertinent positive or pertinent negative responses have been documented in the HPI. Review of Systems: CONST: Denies fever EYES: Denies blurry vision ENT: Denies nasal congestion C/V: Denies Chest pain RESP: Endorses cough GI: Nonspecific abdominal pain : Denies dysuria SKIN: Denies rash. MSK: Denies joint pain. NEURO: Endorses weakness ROS Other: All systems not noted in ROS Statement are negative. Past Medical History Past Medical History: COPD, GERD/Reflux, Hyperlipidemia, Hypertension, Vascular Disorder Additional Past Medical History / Comment(s): back pain & spasms,anemia. hx neck surgery,. cant lay flat with neck issues, need to be propped up. becomes dizzy when sits up @times History of Any Multi-Drug Resistant Organisms: None Reported Past Surgical History: Hernia Repair, Orthopedic Surgery Additional Past Surgical History / Comment(s): amputation rt index finger,reattachment of the lt hand thumb, neck fusion, attempted neck fusion with infection to larynx, lt hand surgery, lt carpal tunnel surgery, release in lt elbow, aortogram Past Anesthesia/Blood Transfusion Reactions: Previous Problems w/ Anesthesia Additional Past Anesthesia/Blood Transfusion Reaction / Comment(s): woke up during carpal tunnel surgery, woke up @end of neck surgery before was supposed to,. unable to lay flat d/t neck pain-needs to have head elevated Past Psychological History: Panic Disorder, PTSD Smoking Status: Current every day smoker Past Alcohol Use History: Abuse, Daily Past Drug Use History: None Reported General Exam - General Exam Comments Initial Comments: General: Appears in no acute distress. HEAD: Normal with no signs of head trauma. EYES: PERRLA, EOMI, conjunctiva normal, no discharge. ENT: Hearing grossly intact, normal oropharynx. Dry mucous membranes. RESPIRATORY: Clear breath sounds bilaterally. No obvious wheezes, rales, or rhonchi. No hypoxia C/V: Regular rate and rhythm. S1 and S2 auscultated, no edema, peripheral pulses 2+ and intact throughout ABD: Abdomen soft, nondistended. Minimal generalized tenderness to palpation with no focal tenderness. No rebound tenderness. No peritoneal signs. No guarding. Rectal exam performed. Good rectal tone. Dark black stools. No obvious hemorrhoids or bright red blood. EXT: Normal range of motion, no obvious deformity SKIN: No rashes or lesions observed on exposed skin. NEURO: Alert and oriented 4. Limitations: no limitations Course Vital Signs 08/15/22 08/15/22 08/15/22 15:31 16:33 16:36 Temperature 98.2 F Pulse Rate 115 H 89 Respiratory 20 18 Rate Blood Pressure 92/64 100/74 O2 Sat by Pulse 99 89 L 94 L Oximetry 08/15/22 08/15/22 08/15/22 16:37 17:06 17:45 Temperature Pulse Rate 89 93 Respiratory 16 12 Rate Blood Pressure O2 Sat by Pulse 95 95 94 L Oximetry 08/15/22 18:24 Temperature Pulse Rate 106 H Respiratory 18 Rate Blood Pressure 137/97 O2 Sat by Pulse 94 L Oximetry Medical Decision Making - Medical Decision Making Was pt. sent in by a medical professional or institution (, PA, PHYSICIAN RELATIONS REPRESENTATIVE, urgent care, hospital, or shelter...) When possible be specific @ -No Did you speak to anyone other than the patient for history (EMS, parent, family, police, friend...)? What history was obtained from this source @ -No Did you review nursing and triage notes (agree or disagree)? Why? @ -I reviewed and agree with nursing and triage notes Were old charts reviewed (outside hosp., previous admission, EMS record, old EKG , old radiological studies, urgent care reports/EKG's, shelter records)? Report findings @ -No old charts were reviewed Differential Diagnosis (chest pain, altered mental status, abdominal pain women, abdominal pain men, vaginal bleeding, weakness, fever, dyspnea, syncope, headache, dizziness, GI bleed, back pain, seizure, CVA, palpatations, mental health, musculoskeletal)? @ -Differential Abdominal Pain Men: Appendicitis, cholecystitis, diverticulosis, ischemic bowel, pancreatitis, hepatitis, UTI, gastroenteritis, AAA, incarcerated hernia, bowel obstruction, constipation, inflammatory bowel, hepatitis, peptic ulcer disease, splenic infarction, perforated viscus, testicular torsion, this is not meant to be an all-inclusive list Differential GI Bleed: Esophageal varices, aortoenteric fistula, Lani-Finney, gastritis, peptic ulcer disease, diverticulosis, inflammatory bowel disease, hemorrhoids, fissure, colitis, malignancy, Meckels diverticulum, this is not meant to be an all- inclusive list. Pneumonia, bronchitis, COPD, this list is not all-inclusive. EKG interpreted by me (3pts min.). @ -As above X-rays interpreted by me (1pt min.). @ -Chest x-ray reveals no obvious acute cardiopulmonary process. CT interpreted by me (1pt min.). @ -CT angiogram of the abdomen and pelvis reveals no active GI bleed. Patient does have ground glass opacities bilateral lower lung lobes concerning for pneumonia, or prominent in the right upper lobe U/S interpreted by me (1pt. min.). @ -None done What testing was considered but not performed or refused? (CT, X-rays, U/S, labs)? Why? @ -None What meds were considered but not given or refused? Why? @ -None Did you discuss the management of the patient with other professionals (professionals i.e. , PA, PHYSICIAN RELATIONS REPRESENTATIVE, lab, RT, psych nurse, social services counselor, car hostler, teacher, public affairs officer, showcase maker)? Give summary @ -No Was smoking cessation discussed for >3mins.? @ -No Was critical care preformed (if so, how long)? @ -No Were there social determinants of health that impacted care today? How? (Homelessness, low income, unemployed, alcoholism, drug addiction, transportation, low edu. Level, literacy, decrease access to med. care, shelter, rehab)? @ -No Was there de-escalation of care discussed even if they declined (Discuss DNR or withdrawal of care, Hospice)? DNR status @ -No What co-morbidities impacted this encounter? (DM, HTN, Smoking, COPD, CAD, Cancer, CVA, ARF, Chemo, Hep., AIDS, mental health diagnosis, sleep apnea, morbid obesity)? @ -Blood thinner use, COPD Was patient admitted / discharged? Hospital course, mention meds given and route, prescriptions, significant lab abnormalities, going to OR and other pertinent info. @ -Based on the patient's presentation and physical exam, presents with signs of a sore chronic GI bleed for the last 4-6 weeks but also complaining of upper respiratory symptoms worsening over the last few days. Has a productive cough with increased sputum. No fevers. Denies any wheezing. Endorses feeling generalized weakness. We will obtain GI bleed labs as well as screening him for Covid, flu, RSV. He was in agreement this plan. He will be symptomatically treated with IV fluids at this time. [facility] Also given IV protonix. Vital signs within acceptable limits. EKG showed no signs of acute ischemia. Chest X-ray revealed no obvious infiltrate or process. CT abdomen and pelvis revealed no obvious GI bleed, there are findings of bilateral ground glass opacities, right worse than left in the lower lung lobes concerning for pneumonia. No other acute findings. Patient's labs are remarkable for negative viral swabs. Mildly elevated leukocytosis of 11.4. Lactic acid is 2.4 likely secondary to mild dehydration. Occult blood is positive. No other findings. Patient's hemoglobin is within normal limits. I did discuss the results with the patient. He is feeling improved at this time. Ambulatory pulse ox is within acceptable limits. I would like to discharge him home on antibiotics as well as strict return precautions if symptoms worsen. Also recommended that we give him a dose of steroids. He has breathing treatments at home. Patient was in agreement this plan. Recommended he follow up to obtain his colonoscopy and return to the emergency department if worsening GI bleeding. We discussed that since dark stools have been ongoing for 6 weeks and hemoglobin is normal and stable, seems to be a chronic process that is stable at this time and no need to emergently admit and evaluate. Can follow up outpatient for this including colonoscopy. I will provide the patient with a prescription for Augmentin. I instructed the patient to follow up with their PCP in the next 1-3 days. I explained that the patient should return to the emergency department if they experience any worsening symptoms. Strict return precautions were discussed with the patient. The patient expressed understanding of these instructions. I answered all questions that the patient had. The patient was discharged home in good condition with their prescriptions and follow up information. Undiagnosed new problem with uncertain prognosis? @ -No Drug Therapy requiring intensive monitoring for toxicity (Heparin, Nitro, Insulin, Cardizem)? @ -No Were any procedures done? @ -No Diagnosis/symptom? @ -GI bleed , on Xeralto Acute, or Chronic, or Acute on Chronic? @ -Chronic Uncomplicated (without systemic symptoms) or Complicated (systemic symptoms)? @ -Uncomplicated Side effects of treatment? @ -No Exacerbation, Progression, or Severe Exacerbation? @ -No Poses a threat to life or bodily function? How? (Chest pain, [place], MD, pneumonia, PE, COPD, DKA, ARF, appy, cholecystitis, CVA, Diverticulitis, Homicidal, Suicidal, threat to staff... and all critical care pts) @ -Yes, could potentially worsen and cause a threat to life. Diagnosis/symptom? @ -Pneumonia, in the setting of COPD Acute, or Chronic, or Acute on Chronic? @ -Acute Uncomplicated (without systemic symptoms) or Complicated (systemic symptoms)? @ -Complicated Side effects of treatment? @ -none Exacerbation, Progression, or Severe Exacerbation] @ -no Poses a threat to life or bodily function? @ -Yes, if untreated can pose a threat to life. - Lab Data Result diagrams: 08/15/22 15:54 08/15/22 15:54 Lab Results 08/15/22 08/15/22 08/15/22 Range/Units 15:53 15:54 15:54 WBC 11.4 H (3.8-10.6) k/uL RBC 4.40 (4.30-5.90) m/uL Hgb 13.1 (13.0-17.5) gm/dL Hct 41.0 (39.0-53.0) % MCV 93.1 (80.0-100.0) fL MCH 29.7 (25.0-35.0) pg MCHC 31.9 (31.0-37.0) g/dL RDW 20.3 H (11.5-15.5) % Plt Count 417 (150-450) k/uL MPV 7.3 Neutrophils % 73 % Lymphocytes % 15 % Monocytes % 9 % Eosinophils % 2 % Basophils % 0 % Neutrophils # 8.3 H (1.3-7.7) k/uL Lymphocytes # 1.7 (1.0-4.8) k/uL Monocytes # 1.0 (0-1.0) k/uL Eosinophils # 0.2 (0-0.7) k/uL Basophils # 0.0 (0-0.2) k/uL Anisocytosis Moderate Microcytosis Slight PT (9.0-12.0) sec INR (<1.2) APTT (22.0-30.0) sec Sodium (137-145) mmol/L Potassium (3.5-5.1) mmol/L Chloride (98-107) mmol/L Carbon Dioxide (22-30) mmol/L Anion Gap mmol/L BUN (9-20) mg/dL Creatinine (0.66-1.25) mg/dL Est GFR (CKD-EPI)AfAm (>60 ml/min/1.73 sqM) Est GFR (CKD-EPI)NonAf (>60 ml/min/1.73 sqM) Glucose (74-99) mg/dL Lactic Ac Sepsis Rflx Plasma Lactic Acid [place] (0.7-2.0) mmol/L Calcium (8.4-10.2) mg/dL Magnesium (1.6-2.3) mg/dL Total Bilirubin (0.2-1.3) mg/dL AST (17-59) U/L ALT (4-49) U/L Alkaline Phosphatase (38-126) U/L Total Protein (6.3-8.2) g/dL Albumin (3.5-5.0) g/dL Urine Color Urine Appearance (Clear) Urine pH (5.0-8.0) Ur Specific [place] (1.001-1.035) Urine Protein (Negative) Urine Glucose (UA) (Negative) Urine Ketones (Negative) Urine Blood (Negative) Urine Nitrite (Negative) Urine Bilirubin (Negative) Urine Urobilinogen (<2.0) mg/dL Ur Leukocyte Esterase (Negative) Urine WBC (0-5) /hpf Stool Occult Blood Positive (Negative) Influenza Type A (PCR) (Not Detectd) Influenza Type B (PCR) (Not Detectd) RSV (PCR) (Not Detectd) SARS-CoV-2 (PCR) (Not Detectd) Blood Type B Negative Blood Type Recheck B Neg Bld Type Recheck Status No Antibody Screen NEGATIVE Spec Expiration Date 08/18/2022 - 235208/15/22 08/15/22 08/15/22 Range/Units 15:54 15:54 15:54 WBC (3.8-10.6) k/uL RBC (4.30-5.90) m/uL Hgb (13.0-17.5) gm/dL Hct (39.0-53.0) % MCV (80.0-100.0) fL MCH (25.0-35.0) pg MCHC (31.0-37.0) g/dL RDW (11.5-15.5) % Plt Count (150-450) k/uL MPV Neutrophils % % Lymphocytes % % Monocytes % % Eosinophils % % Basophils % % Neutrophils # (1.3-7.7) k/uL Lymphocytes # (1.0-4.8) k/uL Monocytes # (0-1.0) k/uL Eosinophils # (0-0.7) k/uL Basophils # (0-0.2) k/uL Anisocytosis Microcytosis PT 10.4 (9.0-12.0) sec INR 1.0 (<1.2) APTT 26.1 (22.0-30.0) sec Sodium 135 L (137-145) mmol/L Potassium 3.8 (3.5-5.1) mmol/L Chloride 102 (98-107) mmol/L Carbon Dioxide 25 (22-30) mmol/L Anion Gap 8 mmol/L BUN <2 L (9-20) mg/dL Creatinine 0.56 L (0.66-1.25) mg/dL Est GFR (CKD-EPI)AfAm >90 (>60 ml/min/1.73 sqM) Est GFR (CKD-EPI)NonAf >90 (>60 ml/min/1.73 sqM) Glucose 105 H (74-99) mg/dL Lactic Ac Sepsis Rflx Plasma Lactic Acid [place] 2.4 H* (0.7-2.0) mmol/L Calcium 8.8 (8.4-10.2) mg/dL Magnesium 1.9 (1.6-2.3) mg/dL Total Bilirubin 0.3 (0.2-1.3) mg/dL AST 29 (17-59) U/L ALT 27 (4-49) U/L Alkaline Phosphatase 86 (38-126) U/L Total Protein 6.1 L (6.3-8.2) g/dL Albumin 3.6 (3.5-5.0) g/dL Urine Color Urine Appearance (Clear) Urine pH (5.0-8.0) Ur Specific [place] (1.001-1.035) Urine Protein (Negative) Urine Glucose (UA) (Negative) Urine Ketones (Negative) Urine Blood (Negative) Urine Nitrite (Negative) Urine Bilirubin (Negative) Urine Urobilinogen (<2.0) mg/dL Ur Leukocyte Esterase (Negative) Urine WBC (0-5) /hpf Stool Occult Blood (Negative) Influenza Type A (PCR) (Not Detectd) Influenza Type B (PCR) (Not Detectd) RSV (PCR) (Not Detectd) SARS-CoV-2 (PCR) (Not Detectd) Blood Type Blood Type Recheck Bld Type Recheck Status Antibody Screen Spec Expiration Date 08/15/22 08/15/22 08/15/22 Range/Units 16:39 16:48 17:50 WBC (3.8-10.6) k/uL RBC (4.30-5.90) m/uL Hgb (13.0-17.5) gm/dL Hct (39.0-53.0) % MCV (80.0-100.0) fL MCH (25.0-35.0) pg MCHC (31.0-37.0) g/dL RDW (11.5-15.5) % Plt Count (150-450) k/uL MPV Neutrophils % % Lymphocytes % % Monocytes % % Eosinophils % % Basophils % % Neutrophils # (1.3-7.7) k/uL Lymphocytes # (1.0-4.8) k/uL Monocytes # (0-1.0) k/uL Eosinophils # (0-0.7) k/uL Basophils # (0-0.2) k/uL Anisocytosis Microcytosis PT (9.0-12.0) sec INR (<1.2) APTT (22.0-30.0) sec Sodium (137-145) mmol/L Potassium (3.5-5.1) mmol/L Chloride (98-107) mmol/L Carbon Dioxide (22-30) mmol/L Anion Gap mmol/L BUN (9-20) mg/dL Creatinine (0.66-1.25) mg/dL Est GFR (CKD-EPI)AfAm (>60 ml/min/1.73 sqM) Est GFR (CKD-EPI)NonAf (>60 ml/min/1.73 sqM) Glucose (74-99) mg/dL Lactic Ac Sepsis Rflx Y Plasma Lactic Acid [place] (0.7-2.0) mmol/L Calcium (8.4-10.2) mg/dL Magnesium (1.6-2.3) mg/dL Total Bilirubin (0.2-1.3) mg/dL AST (17-59) U/L ALT (4-49) U/L Alkaline Phosphatase (38-126) U/L Total Protein (6.3-8.2) g/dL Albumin (3.5-5.0) g/dL Urine Color Colorless Urine Appearance Clear (Clear) Urine pH 5.0 (5.0-8.0) Ur Specific [place] 1.022 (1.001-1.035) Urine Protein Negative (Negative) Urine Glucose (UA) Negative (Negative) Urine Ketones Negative (Negative) Urine Blood Negative (Negative) Urine Nitrite Negative (Negative) Urine Bilirubin Negative (Negative) Urine Urobilinogen <2.0 (<2.0) mg/dL Ur Leukocyte Esterase Trace H (Negative) Urine WBC 4 (0-5) /hpf Stool Occult Blood (Negative) Influenza Type A (PCR) Not Detected (Not Detectd) Influenza Type B (PCR) Not Detected (Not Detectd) RSV (PCR) Not Detected (Not Detectd) SARS-CoV-2 (PCR) Not Detected (Not Detectd) Blood Type Blood Type Recheck Bld Type Recheck Status Antibody Screen Spec Expiration Date - EKG Data -: EKG Interpreted by Me EKG Comments: 12-lead Electrocardiogram Interpretation Note EKG was reviewed and interpreted by myself. 12-lead ECG performed at 1601 is interpreted by me as revealing normal sinus rhythm at a rate of 94 beats per minute. [place] is normal. HI interval is 142 ms, QRS duration is 87 ms, QTc is 399 ms.. There were no ST or T wave abnormalities to suggest myocardial ischemia or injury. R wave progression across the precordium was satisfactory. By my interpretation this EKG is non-diagnostic for acute ischemia. No Prior EKG for comparisons.. Disposition Clinical Impression: GI bleed, Pneumonia, URI (upper respiratory infection) Disposition: HOME SELF-CARE Condition: Good Instructions (If sedation given, give patient instructions): Gastrointestinal Bleeding (ED), Community Acquired Pneumonia (ED) Prescriptions: Amoxic-Pot Clav 875-125Mg [Augmentin 875-125] 1 tab PO Q12HR 7 Days #14 tab Is patient prescribed a controlled substance at d/c from ED?: No Referrals: Yoselin Mora MD [Primary Care Provider] - 1-2 days Time of Disposition: 17:55
[2022-08-15 18:25] VITALS: BP 137/97; PULSE 106; RESP 18
== END 2022-08-15 18:25 | disposition home or self-care (01) ==
LOC: EC 15:17
DX: K92.2 Gastrointestinal hemorrhage, unspecified (principal); J18.9 Pneumonia, unspecified organism; J06.9 Acute upper respiratory infection, unspecified; J44.9 Chronic obstructive pulmonary disease, unspecified; I10 Essential (primary) hypertension; F17.200 Nicotine dependence, unspecified, uncomplicated; Z20.822 Contact with and (suspected) exposure to COVID-19; Z79.01 Long term (current) use of anticoagulants; Z79.51 Long term (current) use of inhaled steroids; Z79.899 Other long term (current) drug therapy
CPT/HCPCS: 36415; 93005; 86900; 86901; 80053; 83605; 83735; 85025; 85610; 85730; 86850; 82272; 81001; 87636; 71045; 74174; 99285; 96374; 96375 ×2; 96361 ×2; J1100; J2405; C9113; Q9967

== ENCOUNTER 2024-05-31 18:05 | Inpatient (IN) | payer OTHER ==
[2024-05-31] MEDS: LIDOCAINE 4% PATCH TOPICAL ONE (21:36)
[2024-05-31] MEDS: HYDROmorphone 1 MG/ML 1 ML SYRINGE IM STA (21:37)
[2024-05-31] MEDS: CYCLOBENZAPRINE 10 MG TAB PO STA (21:37)
[2024-05-31] MEDS ORDERED: NALOXONE 0.4 MG/ML 1 ML VIAL IV PRN (23:20)
[2024-05-31] MEDS ORDERED: ONDANSETRON 4 MG/2 ML VIAL IVP PRN (23:20)
--- NOTE | 2024-05-31 23:41 | ED ---
General Adult HPI - General Chief complaint: Back Pain/Injury Stated complaint: back pain Time Seen by Provider: 05/31/24 20:31 Source: patient Mode of arrival: wheelchair Limitations: no limitations - History of Present Illness Initial comments: Patient is a 58 y/o gentleman PMH chronic back pain, HLD, HTN, peripheral vascular disease presenting for back injury. Patient states that 4 weeks ago he slipped and fell down the stairs and landed on his behind. Since then he has had persistent back pain and bilateral lower extremity weakness. He states has been bedbound for the last 3 weeks and finally reports the last week was able to get up and walk around. He denies any saddle anesthesia, new numbness, difficulty urinating/urinary incontinence or incontinence of stool. Denies fevers or chills. Had a CT scan done on 05/28/2024 which showed a T12 burst fracture. He contacted to Dr. Dick, his spine surgeon, who he states told him to come to the emergency department for further evaluation. Patient has been taking home percocet without relief of pain. - Related Data Home Medications Medication Instructions Recorded Confirmed amLODIPine [Norvasc] 5 mg PO DAILY 02/06/21 08/15/22 Budesonide/Formoterol Fumarate 2 puff INHALATION RT-BID 08/15/22 08/15/22 [Symbicort 80-4.5 Mcg Inhaler] Ferrous Sulfate [Feosol] 325 mg PO HS 08/15/22 08/15/22 Fluticasone Nasal [place] [Flonase 1 spr EA NOSTRIL DAILY 08/15/22 08/15/22 Nasal [place]] QUEtiapine FUMARATE [SEROquel] 300 mg PO HS 08/15/22 08/15/22 oxyCODONE HCL [oxyCODONE HCL (IR)] 15 mg PO QID 08/15/22 08/15/22 Previous Rx's Medication Instructions Recorded Aspirin 81 mg PO DAILY #30 tab 04/04/21 Atorvastatin Calcium [Lipitor] 40 mg PO HS #30 tablet 04/04/21 Clopidogrel [Plavix] 75 mg PO DAILY #30 tablet 04/04/21 Rivaroxaban [Xarelto] 2.5 mg PO BID #60 tablet 04/04/21 Amoxic-Pot Clav 875-125Mg 1 tab PO Q12HR 7 Days #14 tab 08/15/22 [Augmentin 128-497] Allergies Allergy/AdvReac Type Severity Reaction Status Date / Time No Known Allergies Allergy Verified 05/31/24 18:42 Review of Systems ROS Statement: Those systems with pertinent positive or pertinent negative responses have been documented in the HPI. ROS Other: All systems not noted in ROS Statement are negative. Past Medical History Past Medical History: COPD, GERD/Reflux, Hyperlipidemia, Hypertension, Vascular Disorder Additional Past Medical History / Comment(s): back pain & spasms,anemia. hx neck surgery,. cant lay flat with neck issues, need to be propped up. becomes dizzy when sits up @times History of Any Multi-Drug Resistant Organisms: None Reported Past Surgical History: Hernia Repair, Orthopedic Surgery Additional Past Surgical History / Comment(s): amputation rt index finger,reattachment of the lt hand thumb, neck fusion, attempted neck fusion with infection to larynx, lt hand surgery, lt carpal tunnel surgery, release in lt elbow, aortogram Past Anesthesia/Blood Transfusion Reactions: Previous Problems w/ Anesthesia Additional Past Anesthesia/Blood Transfusion Reaction / Comment(s): woke up during carpal tunnel surgery, woke up @end of neck surgery before was supposed to,. unable to lay flat d/t neck pain-needs to have head elevated Past Psychological History: Panic Disorder, PTSD Smoking Status: Current every day smoker Past Alcohol Use History: Abuse, Daily, Heavy Past Drug Use History: None Reported General Exam - General Exam Comments Initial Comments: PE: CONSTITUTIONAL: No apparent distress, chornically ill appearing, nontoxic SKIN: Warm, dry, no jaundice, hives or petechiae EYES: Pupils are equally round, extraocular movements intact without nystagmus, clear conjunctiva, non-icteric sclera HENT: Normocephalic, atraumatic, moist mucus membranes, oropharynx clear without exudates NECK: , Full range of motion, normal appearance PULMONARY: Clear to auscultation without wheezes, rhonchi, or rales, normal excursion, no accessory muscle use and no stridor CARDIOVASCULAR: Regular rate, rhythm, normal S1 and S2. No appreciated murmurs, rubs or gallops. Strong dorsalis pedis pulses with intact distal perfusion. 1+ bilateral lower extremity edema GASTROINTESTINAL: Soft, active bowel sounds throughout, non-tender, non- distended, no palpable masses, no rebound or guarding. No hepatosplenomegaly GENITOURINARY: MUSCULOSKELETAL: Extremities have no gross deformity, midline spinal tenderness palpation near T12/L1, no step-offs or bruising NEUROLOGIC:_a/o x 3, GCS 15, normal mentation and speech. Bilateral upper extremities have equal 5 out of 5 strength bilaterally, bilateral lower extremities have 2-3 out of 5 strength bilaterally, sensation intact to light touch bilaterally, downgoing babinski bilat, no clonus, 2+ patellar reflex RLE, 3+ patellar reflex LLE PSYCHIATRIC:_normal mood and affect, thought process is clear and linear Limitations: no limitations Course Vital Signs 05/31/24 05/31/24 18:38 20:42 Temperature 98.9 F Pulse Rate 128 H 95 Respiratory 18 18 Rate Blood Pressure 95/68 130/95 O2 Sat by Pulse 98 98 Oximetry Medical Decision Making - Medical Decision Making Was pt. sent in by a medical professional or institution (, PA, PLEAT PATTERNMAKER, urgent care, hospital, or prison...) When possible be specific @Patient was sent in by Dr. Dick Did you speak to anyone other than the patient for history (EMS, parent, family, police, friend...)? What history was obtained from this source @ -No Did you review nursing and triage notes (agree or disagree)? Why? @ -I reviewed nursing and triage notes Were old charts reviewed (outside hosp., previous admission, EMS record, old EKG, old radiological studies, urgent care reports/EKG's, prison records)? Report findings @ -Medical records reviewed reviewed CT report from patient's CT spine performed on 05/28/24, read is significant for T12 burst fracture Differential Diagnosis (chest pain, altered mental status, abdominal pain women, abdominal pain men, vaginal bleeding, weakness, fever, dyspnea, syncope, headache, dizziness, GI bleed, back pain, seizure, CVA, palpatations, mental health, musculoskeletal)? N/A-patient has known T12 burst fracture EKG interpreted by me (3pts min.). @ -As above X-rays interpreted by me (1pt min.). @ -None done CT interpreted by me (1pt min.). @ -None done U/S interpreted by me (1pt. min.). @ -None done What testing was considered but not performed or refused? (CT, X-rays, U/S, labs)? Why? @ -None What meds were considered but not given or refused? Why? @ -None Did you discuss the management of the patient with other professionals (professionals i.e. , PA, PLEAT PATTERNMAKER, lab, RT, psych nurse, social worker psychiatric, teacher physically impaired, teacher, ground intelligence officer, case consultant)? Give summary Case discussed with Dr. Dick, kindly accepts pt for admission, requests medicine consult, NPO at midnight, stat MRI thoracic and lumbar spine Was smoking cessation discussed for >3mins.? @ -No Was critical care preformed (if so, how long)? @ -No Were there social determinants of health that impacted care today? How? (Homelessness, low income, unemployed, alcoholism, drug addiction, transportation, low edu. Level, literacy, decrease access to med. care, long-term, rehab)? @ -No Was there de-escalation of care discussed even if they declined (Discuss DNR or withdrawal of care, Hospice)? @ -No What co-morbidities impacted this encounter? (DM, HTN, Smoking, COPD, CAD, Cancer, CVA, ARF, Chemo, Hep., AIDS, mental health diagnosis, sleep apnea, morbid obesity)? Chronic back pain, HTN, HLD Was patient admitted / discharged? Hospital course, mention meds given and route, prescriptions, significant lab abnormalities, going to OR and other pertinent info. @Admission-patient is a pleasant 58-year-old gentleman presenting today for evaluation of T12 burst fracture noted on outpatient imaging sustained about 4 weeks ago. Patient tachycardic on arrival otherwise vital signs within acceptable limits. Patient is afebrile and I suspect tachycardia secondary to pain. Complete history and physical exam performed. Significant for midline spinal tenderness near T12/L1, bilateral equal lower extremity weakness 2-3 out of 5 strength in bilateral lower extremities sensation intact bilaterally, 2+ dorsalis pedis pulses palpated bilaterally. Pt denies symptoms consistent with cauda equina syndrome. Plan for pain control, anticipate admission will discuss with Dr. Dick. Pt agreeable w/ POC. Case discussed with Dr. Dick, kindly accepts pt for admission, requests and recs as above. Updated pt, who's pain is improving. Pt admitted in stable condition, NPO at midnight, pre-op labs ordered. Undiagnosed new problem with uncertain prognosis? @ -No Drug Therapy requiring intensive monitoring for toxicity (Heparin, Nitro, Insulin, Cardizem)? @ -No Were any procedures done? @ -No Diagnosis/symptom? @ T12 Burst fracture Acute, or Chronic, or Acute on Chronic? @ subacute Uncomplicated (without systemic symptoms) or Complicated (systemic symptoms)? complicated Side effects of treatment? @ -No Exacerbation, Progression, or Severe Exacerbation? @ -No Poses a threat to life or bodily function? How? (Chest pain, [place], [place], pneumonia, PE, COPD, DKA, ARF, appy, cholecystitis, CVA, Diverticulitis, Homicidal, Suicidal, threat to staff... and all critical care pts) @ Yes potentially, if allowed to continue untreated, could lead to chronic pain and weakness/disability Disposition Clinical Impression: T12 burst fracture Disposition: ADMITTED IP TO THIS HOSP Condition: Stable Referrals: Selina Vincent MD [Primary Care Provider] - 1-2 days
[2024-05-31] MEDS: HYDROmorphone 1 MG/ML 1 ML SYRINGE IVP PRN (23:50)
[2024-05-31 23:51] LABS: African American GFR (CKD) >90 (>60 ml/min/1.73 sqM); Anion Gap 4 mmol/L; Blood Urea Nitrogen 5 mg/dL (9-20); Carbon Dioxide 27 mmol/L (22-30); Chloride 99 mmol/L (98-107); Glucose 128 mg/dL (74-99); Non-African American GFR(CKD) >90 (>60 ml/min/1.73 sqM); Potassium 3.8 mmol/L (3.5-5.1); Sodium 130 mmol/L (137-145)
[2024-05-31] MEDS: SODIUM CHLORIDE 0.9% 1,000 ML IV SCH (23:52)
[2024-06-01 00:04] LABS: Partial Thromboplastin Time 23.3 sec (22.0-30.0); Prothrombin Time 11.1 sec (10.0-12.5)
[2024-06-01 00:47] LABS: Anisocytosis Slight; HCT 28.4 % (39.0-53.0); HGB 8.5 gm/dL (13.0-17.5); Hypochromasia Marked; MCH 30.7 pg (25.0-35.0); MCHC 30.1 g/dL (31.0-37.0); MCV 102.1 fL (80.0-100.0); Macrocytosis Moderate; Mean Platelet Volume 7.8; Platelet Count 228 k/uL (150-450); RBC 2.78 m/uL (4.30-5.90); RDW 19.4 % (11.5-15.5); WBC 3.8 k/uL (3.8-10.6)
[2024-06-01] MEDS: QUEtiapine 100 MG TAB PO SCH (00:48)
[2024-06-01] MEDS: ATORVASTATIN 40 MG TAB PO SCH (00:48)
[2024-06-01 02:22] LABS: Band Neutrophils % 5 %; Eosinophils # (M) 0.11 k/uL (0-0.7); Lymphocytes # (M) 1.14 k/uL (1.0-4.8); Metamyelocytes # (M) 0.04 k/uL (0); Metamyelocytes % 1 %; Monocytes # (M) 0.27 k/uL (0-1.0); Neutrophils % (M) 56 %; Nucleated Red Blood Cells 0 /100 WBC (0-0); Total Cells Counted 200
[2024-06-01 02:24] LABS: Polychromasia Present; Target Cells Present
[2024-06-01 02:25] LABS: Poikilocytosis (M) Present
[2024-06-01 08:26] LABS: Anisocytosis Slight; Basophils % (A) 1 %; Eosinophils # (A) 0.1 k/uL (0-0.7); Eosinophils % (A) 3 %; HCT 24.5 % (39.0-53.0); HGB 7.3 gm/dL (13.0-17.5); Hypochromasia Marked; Lymphocytes # (A) 0.9 k/uL (1.0-4.8); Lymphocytes % (A) 30 %; MCH 30.5 pg (25.0-35.0); MCHC 29.7 g/dL (31.0-37.0); MCV 102.8 fL (80.0-100.0); Macrocytosis Moderate; Mean Platelet Volume 7.5; Monocytes # (A) 0.5 k/uL (0-1.0); Monocytes % (A) 15 %; Neutrophils # (A) 1.5 k/uL (1.3-7.7); Neutrophils % (A) 48 %; Platelet Count 241 k/uL (150-450); RBC 2.38 m/uL (4.30-5.90); RDW 19.1 % (11.5-15.5); WBC 3.1 k/uL (3.8-10.6)
--- NOTE | 2024-06-01 08:29 | P.HPOR ---
History of Present Illness H&P Date: 06/01/24 Chief Complaint: Mid-Low back pain, T12 burst fracture History of Presenting Illness Patient is a pleasant 58-year-old male who presented to the ER for severe back pain and lower extremity weakness. Patient is known to our office. Patient reports approximately 4 to 5 weeks ago he was walking down the stairs and when it came to the last 2 steps he slipped and fell landing on his buttock. Patient states since the incident he has increased aching and sharp mid to low back pain that radiates into the bilateral lower extremities. Patient does report that he has numbness and tingling in his feet, although he states he believes this is from his peripheral or vascular disease. Patient states that he has had increased weakness of his lower extremities and has been bedbound over the last few weeks. He does report that he has been able to get around over the last week. He does live with his girlfriend and he is ambulatory with a cane. Patient was able to obtain a CT scan at an outside facility on 05/28/2024 that demonstrated a T12 burst fracture. Patient does have a past medical history of chronic back pain, hyperlipidemia, hypertension, and peripheral vascular disease with right lower extremity stent placement. Patient does report that he is on a Xarelto and Plavix, last dose taken on 05/30/24. Patient does have an orthopedic history of neck surgery and extensive left hand surgeries. Patient seen and examined this morning. Patient is resting comfortably in bed. He does report that his pain is managed on current regimen. Patient has remained n.p.o. since midnight. Informed patient that multiple advanced imaging has been ordered for further evaluation of his spine. Patient verbalizes understanding. He states that the MRI department is verifying that his stent in his right lower extremity is MRI compatible. Discussed with patient that his surgery has been tentatively scheduled for later this afternoon. Patient does state that he has anxiety towards surgery due to having issues with anesthesia and waking up during procedures. Informed patient that we will discuss this with anesthesia and that he will be able to talk with them prior to the procedure. Review of Systems Pertinent positives and negatives as discussed in HPI, a complete review of systems was performed and all other systems are negative. Physical Examination General: The patient is awake and alert, in no acute distress Skin: Skin is warm and dry with no obvious rashes or lesions. Neck: The neck is supple, there is no tenderness and ROM intact. Cardiovascular: There is a regular rate and rhythm. Respiratory: Respirations are non-labored. Gastrointestinal: Soft, non-distended, non-tender abdomen. Back: There is tenderness to palpation in the midline thoracolumbar region. T here is no obvious deformity. Musculoskeletal: ROM limited secondary to pain. Right: shoulder abduction 5/5, elbow flexors 5/5, wrist dorsiflexors 5/5. finger abductor 5/5, cable maintainer 5/5, hip flexor 4-/5, knee flexor 4-/5, ankle dorsiflexor 4/5, ankle plantarflexion 4/5 and extensor hallucis 4/5. Left: shoulder abduction 5/5, elbow flexors 5/5, wrist dorsiflexors 5/5. finger abductor 5/5, cable maintainer 5/5, hip flexor 4-/5, knee flexor 4-/5, ankle dorsiflexor 4/5, ankle plantarflexion 4/5 and extensor hallucis 4/5. Neurological: CN 2-12 intact. There are no obvious motor or sensory deficits. Movement and coordination equal and intact. Sensory exam to light touch intact C5-T1 and intact from L2-S1. Reflexes 2/4 in bilateral upper and lower extremities. Negative Hoffmans, babinski, and clonus signs. Psychiatric: Cooperative, appropriate mood & affect, normal judgment. Assessment Recent fall from standing Thoracolumbar back pain Bilateral lower extremity radiculopathy Bilateral lower extremity weakness T12 burst fracture Plan At this time we recommend surgical intervention of a Open Treatment of the T12 Burst Fracture with T10-L2 stabilization. 2. Appreciate medical management 3. 2 view thoracic spine x-ray, CT of the thoracic and lumbar spine, and MRI of the thoracic and lumbar spine has been ordered for further evaluation 4. Patient is to remain n.p.o. 5. Pain management - IV Dilaudid, Utilize ice therapy 20min every hour as needed. 6. GI prophylaxis - Senna 7. DVT prophylaxis -TEDS, SCDs 8. PT/OT - weightbearing as tolerated with a walker as needed. I reviewed and discussed this case with my attending Dr. Dick, whom has reviewed this chart and films and is in agreement with assessment and plan of care as outlined above. I have personally seen and examined the patient, performed the documentation and the assessment and plan as written. Number of minutes spent on the visit: 30m. Past Medical History Past Medical History: COPD, GERD/Reflux, Hyperlipidemia, Hypertension, Vascular Disorder Additional Past Medical History / Comment(s): back pain & spasms,anemia. hx neck surgery,. cant lay flat with neck issues, need to be propped up. becomes dizzy when sits up @times History of Any Multi-Drug Resistant Organisms: None Reported Past Surgical History: Hernia Repair, Orthopedic Surgery Additional Past Surgical History / Comment(s): amputation rt index finger,reattachment of the lt hand thumb, neck fusion, attempted neck fusion with infection to larynx, lt hand surgery, lt carpal tunnel surgery, release in lt elbow, aortogram Past Anesthesia/Blood Transfusion Reactions: Previous Problems w/ Anesthesia Additional Past Anesthesia/Blood Transfusion Reaction / Comment(s): woke up during carpal tunnel surgery, woke up @end of neck surgery before was supposed to,. unable to lay flat d/t neck pain-needs to have head elevated Past Psychological History: Panic Disorder, PTSD Smoking Status: Current every day smoker Past Alcohol Use History: Abuse, Daily, Heavy Past Drug Use History: None Reported Medications and Allergies Home Medications Medication Instructions Recorded Confirmed Type amLODIPine [Norvasc] 5 mg PO DAILY 02/06/21 08/15/22 History Aspirin 81 mg PO DAILY #30 tab 04/04/21 08/15/22 Rx Atorvastatin Calcium [Lipitor] 40 mg PO HS #30 tablet 04/04/21 08/15/22 Rx Clopidogrel [Plavix] 75 mg PO DAILY #30 tablet 04/04/21 08/15/22 Rx Rivaroxaban [Xarelto] 2.5 mg PO BID #60 tablet 04/04/21 08/15/22 Rx Amoxic-Pot Clav 875-125Mg 1 tab PO Q12HR 7 Days #14 tab 08/15/22 Rx [Augmentin 875-125] Budesonide/Formoterol Fumarate 2 puff INHALATION RT-BID 08/15/22 08/15/22 History [Symbicort 80-4.5 Mcg Inhaler] Ferrous Sulfate [Feosol] 325 mg PO HS 08/15/22 08/15/22 History Fluticasone Nasal [place] [Flonase 1 spr EA NOSTRIL DAILY 08/15/22 08/15/22 History Nasal [place]] QUEtiapine FUMARATE [SEROquel] 300 mg PO HS 08/15/22 08/15/22 History oxyCODONE HCL [oxyCODONE HCL (IR)] 15 mg PO QID 08/15/22 08/15/22 History Allergies Allergy/AdvReac Type Severity Reaction Status Date / Time No Known Allergies Allergy Verified 05/31/24 18:42 Results - Labs Labs: Abnormal Lab Results - Last 24 Hours (Table) 05/31/24 05/31/24 Range/Units 23:33 23:33 RBC 2.78 L (4.30-5.90) m/uL Hgb 8.5 L (13.0-17.5) gm/dL Hct 28.4 L (39.0-53.0) % MCV 102.1 H (80.0-100.0) fL MCHC 30.1 L (31.0-37.0) g/dL RDW 19.4 H (11.5-15.5) % Metamyelocytes # (Man) 0.04 H (0) k/uL Sodium 130 L (137-145) mmol/L BUN 5 L (9-20) mg/dL Glucose 128 H (74-99) mg/dL Calcium 8.0 L (8.4-10.2) mg/dL H & H 05/31/24 Range/Units 23:33 Hgb 8.5 L (13.0-17.5) gm/dL Hct 28.4 L (39.0-53.0) % Coagulation 05/31/24 Range/Units 23:33 INR 1.0 (<1.2) Result Diagrams: 05/31/24 23:33 05/31/24 23:33
[2024-06-01 08:37] LABS: ALT 10 U/L (4-49); AST 23 U/L (17-59); African American GFR (CKD) >90 (>60 ml/min/1.73 sqM); Alkaline Phosphatase 99 U/L (38-126); Anion Gap -2 mmol/L; Blood Urea Nitrogen 5 mg/dL (9-20); Calcium 7.5 mg/dL (8.4-10.2); Carbon Dioxide 30 mmol/L (22-30); Chloride 105 mmol/L (98-107); Globulin 2.1 g/dL; Glucose 90 mg/dL (74-99); Non-African American GFR(CKD) >90 (>60 ml/min/1.73 sqM); Potassium 3.5 mmol/L (3.5-5.1); Sodium 133 mmol/L (137-145); Total Bilirubin 0.2 mg/dL (0.2-1.3); Total Protein 4.1 g/dL (6.3-8.2)
[2024-06-01] MEDS: SYMBICORT 80-4.5 MCG INHALER INHALATION SCH (08:54)
[2024-06-01] MEDS ORDERED: ALBUTEROL NEBULIZED 2.5 MG/3 ML INHALATION PRN (08:59)
[2024-06-01] MEDS ORDERED: IPRATROPIUM-ALBUTEROL 3 ML NEB INHALATION PRN (08:59)
[2024-06-01] MEDS ORDERED: Potassium Replacement Protocol 1 EACH MISC MISCELLANE PRN (09:25)
[2024-06-01] MEDS: ENOXAPARIN 40 MG/0.4 ML SYRINGE SQ SCH (09:34)
[2024-06-01] MEDS: PANTOPRAZOLE 40 MG TABLET PO SCH (10:38)
[2024-06-01] MEDS: POTASSIUM CHLORIDE ER 20 MEQ TAB.ER PO SCH (10:38)
--- NOTE | 2024-06-01 10:39 | MR ---
EXAMINATION TYPE: MR tspine/lspine wo con DATE OF EXAM: 06/01/2024 10:17 AM COMPARISON: . CLINICAL INDICATION: Male, 58 years old with history of T12 Burst fracture, LE weakness; PHH, T12 Bur st Fracture, LE weakness pain TECHNIQUE: Multi planar, multi sequence imaging was performed utilizing: T1-weighted, T2-weighted, a nd turbo inversion recovery imaging of the thoracic and lumbar spine. IV Contrast: mL (None, if empty) FINDINGS: Alignment: The thoracic and lumbar vertebral bodies have preserved heights and alignment. Cord: The conus medullaris and the distal spinal cord appear unremarkable with regards to their signa l intensity and morphology. Bones/Discs: Compression deformity to the T12 vertebral body with bony edema on inversion recovery se quences there is 25-50% height loss. Mild retropulsion up up to 5 mm. Superior endplate Schmorl's nod e of the T9 vertebral body. This mildly impresses upon the spinal cord at this level. THORACIC: No evidence significant spinal canal or neural foraminal stenosis. Spinal cord is within no rmal limits. No evidence for significant spinal canal stenosis. LUMBAR: T12-L1: Fracture with mild impression of the spinal cord no significant spinal canal stenosis. No marvel dence of significant spinal canal stenosis or neural foraminal stenosis. L1-L2: No evidence of significant spinal canal stenosis or neural foraminal stenosis. L2-L3: No evidence of significant spinal canal stenosis or neural foraminal stenosis. L3-L4: No evidence of significant spinal canal stenosis. Facet joint arthropathy mild bilateral neura l foraminal stenosis. L4-L5: No evidence of significant spinal canal stenosis. Facet joint arthropathy mild bilateral neura l foraminal stenosis. L5-S1: The disc is rounded posterior morphology without significant spinal canal stenosis. Facet join t arthropathy with mild neural foraminal stenosis. Other findings: None. IMPRESSION: 1. Compression deformity to the T12 vertebral body with bony edema on inversion recovery sequences t here is 25-50% height loss. Mild retropulsion up up to 5 mm. 2. No additional fractures identified. 3. Chronic-appearing T9 superior endplate Schmorl's node. 4. Mild degeneration changes no evidence for significant spinal canal or neural foraminal stenosis. [facility], , 06/01/2024 10:37 AM
[2024-06-01] MEDS: GABAPENTIN 300 MG CAP PO SCH (10:40)
[2024-06-01] MEDS: THIAMINE 100 MG TAB PO SCH (10:40)
--- NOTE | 2024-06-01 10:41 | CT ---
EXAMINATION TYPE: CT thor lumbar spine wo con DATE OF EXAM: 06/01/2024 10:23 AM COMPARISON: None. CLINICAL INDICATION: Male, 58 years old with history of fracture, fracture, pre surgical., TECHNIQUE: Contiguous axial scanning of the thoracolumbar spine without IV contrast. Coronal and sagi ttal reconstructions performed. CT DLP: 1479 mGycm, Automated exposure control for dose reduction was used. FINDINGS: Partial visualized ACDF down to C7. There is an acute to subacute vertebral compression injury of T12. This is secondary to superior endp late fracture. There is some retropulsion into the ventral spinal canal contributing to mild to moder ate focal spinal canal stenosis, AP canal dimension narrowed to 8 mm. There is overall 25% anterior v ertebral body height loss but nearly 50% height loss of the mid vertebral body. Superior endplate Schmorl's node at T9. Remaining vertebral body heights are preserved. Bilateral L5 pars defects at L5 with trace grade 1 anterolisthesis L5-S1. Trace grade 1 retrolisthesi s L4-L5 from facet arthropathy. Mild degenerative disc disease with a disc bulging mid to lower lumbar spine. Changes result in moder ate bilateral neuroforaminal stenosis at L4-L5 and [id number] on the right at L5-S1. At the T12 level, there is mild paravertebral soft tissue swelling with trace pleural effusions. Patc hy airspace opacity at the posterior right base. Moderate calcifications infrarenal abdominal aorta and common iliac arteries. Minimal ectasia left co mmon iliac artery up to 1.7 cm. There may be more moderate to severe atherosclerotic changes in the b ilateral external iliac arteries. Prominent distention of the urinary bladder. IMPRESSION: 1. ACUTE TO SUBACUTE SUPERIOR ENDPLATE FRACTURE OF T12 RESULTING IN 25% ANTERIOR HEIGHT LOSS AND RETR OPULSION INTO THE VENTRAL SPINAL CANAL. THE RETROPULSION CONTRIBUTES TO A MODERATE FOCAL SPINAL CANAL STENOSIS, AP CANAL DIMENSION NARROWED TO 8 MM. 2. MILD PARAVERTEBRAL SOFT TISSUE SWELLING AT THIS LEVEL WITH TRACE PLEURAL EFFUSIONS WHICH MAY BE RE ACTIVE TO THE VERTEBRAL BODY INJURY. 3. PATCHY POSTERIOR RIGHT BASILAR OPACITY FOR WHICH INFECTIOUS OR ASPIRATION PNEUMONITIS SHOULD BE EX CLUDED. 4. INCIDENTAL BILATERAL L5 PARS DEFECTS. DEGENERATIVE TRACE GRADE 1 RETROLISTHESIS L3-L4 L4-L5. [facility], , 06/01/2024 10:39 AM
[2024-06-01] MEDS: amLODIPine 5 MG TAB PO SCH (10:47)
[2024-06-01] MEDS: FLUTICASONE NASAL 50MCG/SPRAY 16GM BTL EA NOSTRIL SCH (10:49)
[2024-06-01] MEDS: LACTATED RINGERS 1,000 ML IV SCH (12:02)
[2024-06-01] MEDS ORDERED: TRANEXAMIC 1,000 MG/100ML-NACL 1,000 MG in SALINE 1 100ML.BAG IVPB PRN (12:30)
[2024-06-01 15:18] VITALS: BMI 20.2
[2024-06-01] MEDS: HYDROmorphone 0.5 MG/0.5 ML SYRINGE IVP PRN (17:39)
--- NOTE | 2024-06-01 19:56 | P.CONS ---
History of Present Illness - Reason for Consult Consult date: 06/01/24 Medical management Requesting physician: Zbigniew Dick - Chief Complaint Low back pain - History of Present Illness Pleasant 58-year-old patient who follows with Dr. Selina Vincent. 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 Cannot lay flat because of neck problems. Has had neck fusion surgery. About a month ago he fell from his front door onto the porch on the on his buttock. Since then has been having creasing pain. He is able to get around the house. Has pain going down the legs. No change in his bowel or bladder pattern. Patient does smoke a pack of cigarettes a day. At drinks 6 beer pack a night for a long time. Because of his back he is on disability. He had his CAT scan done on May 28 that showed a T12 burst fracture. Patient is asked to come into the ER and admitted for the same. No cardiac symptoms. Review of systems: GEN.: Tired EYES: None HEENT: None NECK: None RESPIRATORY: None CARDIOVASCULAR: None GASTROINTESTINAL: None GENITOURINARY: None MUSCULOSKELETAL: [Back pain LYMPHATICS: None HEMATOLOGICAL: None PSYCHIATRY: None NEUROLOGICAL: Weakness in the legs e Social history: Lives with his girlfriend Mara. Drinks a sixpack of beer every night. Smokes a pack a day for many years. On disability. Physical examination: VITAL SIGNS: 98, 90, 17, 128 x 80, 96% room air GENERAL: BMI 20.2, laying in bed awake.. Spider nevi on upper chest EYES: Pupils equal. Conjunctiva froylan l. HEENT: External appearance of nose and ears normal, oral cavity grossly normal. NECK: JVD not raised; masses not palpable. HEART: First and second heart sounds are normal; no edema. LUNGS: Respiratory rate normal; decreased breath sound. ABDOMEN: Soft, nontender, liver spleen not palpable, no masses palpable. PSYCH: Alert and oriented x3; mood and affect froylan l. MUSCULOSKELETAL:No Clubbing/cyanosis;muscles-grossly intact. Does have pain on moving his spinal axis. Dupuytren's contracture on both hands. Some missing digit. Erythema-ab agne, on right knee from sitting for the firmness NEUROLOGICAL: [Cranial nerves grossly intact; no facial asymmetry, decreased for lower extremity LYMPHATICS: No lymph nodes palpable in the axilla and neck INVESTIGATIONS, reviewed in the clinical context: June 01, 2024: White count 3.1 hemoglobin 7.3 platelets 241 sodium 133 potassium 3.5 BUN 5 creatinine 0.66 albumin 2 May 31: White count 3.8 hemoglobin 8.5 sodium 130 potassium 3.8 Thoracolumbar MRI: Compression deformity of the T12 vertebral body with bony edema on inversion recovery sequences with 25 to 50% height loss. Mild retropulsion up to 5 mm. Some DJD changes. No significant spinal stenosis. Assessment plan: -Compression deformity of T12 vertebral body with bony edema, resulting from a fall in the buttock about a month ago. Subsequently patient has bilateral radiculopathy and some lower extremity paresis. No involvement of the bladder or the bowel. Patient to be going in for surgery by Dr. Dick. -Prior chronic low back pain and spasms and also prior history of cervical spine fusion -Alcohol use disorder Patient drinks 6 beers a night. Will do CIWA scale. And for prophylaxis will give Valium 1 mg every 8. Thiamine. Folic acid. -Moderate protein calorie malnutrition Nutritional supplements postoperatively -Chronic nicotine dependence cigarette smoker Nicotine patch -Macrocytic anemia Check iron studies, B12, folate -GERD PPI -COPD in a smoker DuoNeb. As needed. Symbicort -Chronic back pain with spasms Patient does take at home oxycodone 50 mg 4 times daily. Care was discussed with patient. Questions answered. Will order a preoperative 2D echocardiogram, EKG, chest x-ray. Patient is otherwise medically stable to proceed for surgery. Care was discussed with the patient. Questions answered. Patient does take aspirin Plavix Xarelto at home. All have been held. Thank you Dr. Dick - Past Medical History Past Medical History: COPD, GERD/Reflux, Hyperlipidemia, Hypertension, Vascular Disorder Additional Past Medical History / Comment(s): back pain & spasms,anemia. hx neck surgery,. cant lay flat with neck issues, need to be propped up. becomes dizzy when sits up @times History of Any Multi-Drug Resistant Organisms: None Reported Past Surgical History: Hernia Repair, Orthopedic Surgery Additional Past Surgical History / Comment(s): amputation rt index finger ,reattachment of the lt hand thumb, neck fusion, attempted neck fusion with infection to larynx, lt hand surgery, lt carpal tunnel surgery, release in lt elbow, aortogram Past Anesthesia/Blood Transfusion Reactions: Previous Problems w/ Anesthesia Additional Past Anesthesia/Blood Transfusion Reaction / Comm: woke up during carpal tunnel surgery, woke up @end of neck surgery before was supposed to,. unable to lay flat d/t neck pain-needs to have head elevated Past Psychological History: Panic Disorder, PTSD Smoking Status: Current every day smoker Past Alcohol Use History: Abuse, Daily, Heavy Past Drug Use History: None Reported Medications and Allergies Home Medications Medication Instructions Recorded Confirmed Type Aspirin 81 mg PO DAILY #30 tab 04/04/21 06/01/24 Rx Atorvastatin Calcium [Lipitor] 40 mg PO HS #30 tablet 04/04/21 06/01/24 Rx Clopidogrel [Plavix] 75 mg PO DAILY #30 tablet 04/04/21 06/01/24 Rx Rivaroxaban [Xarelto] 2.5 mg PO BID #60 tablet 04/04/21 06/01/24 Rx Budesonide/Formoterol Fumarate 2 puff INHALATION RT-BID 08/15/22 06/01/24 History [Symbicort 80-4.5 Mcg Inhaler] Ferrous Sulfate [Feosol] 325 mg PO HS 08/15/22 06/01/24 History Fluticasone Nasal [place] [Flonase 2 spr EA NOSTRIL DAILY PRN 08/15/22 06/01/24 History Nasal [place]] QUEtiapine FUMARATE [SEROquel] 300 mg PO HS 08/15/22 06/01/24 History oxyCODONE HCL [oxyCODONE HCL (IR)] 15 mg PO QID 08/15/22 06/01/24 History Albuterol Nebulized [Ventolin 2.5 mg INHALATION RT-QID PRN 06/01/24 06/01/24 History Nebulized] Ergocalciferol [Vitamin D2 (1250 1,250 mcg PO MO 06/01/24 06/01/24 History Mcg = 99619 Iu)] Gabapentin [Neurontin] 300 mg PO BID 06/01/24 06/01/24 History Ipratropium Nebulized [Atrovent 0.5 mg INHALATION RT-QID PRN 06/01/24 06/01/24 History Nebulized 0.2 MG/ML] Omeprazole Magnesium [PriLOSEC OTC] 20 mg PO DAILY 06/01/24 06/01/24 History Thiamine [Vitamin B-1] 100 mg PO DAILY 06/01/24 06/01/24 History Allergies Allergy/AdvReac Type Severity Reaction Status Date / Time No Known Allergies Allergy Verified 06/01/24 08:33 Physical Exam Vitals: Vital Signs Temp Pulse Pulse Resp BP BP BP 06/01/24 14:17 97.7 F 73 17 147/85 06/01/24 13:53 98.1 F 77 16 124/81 06/01/24 12:00 98 F 81 16 124/87 06/01/24 11:40 97.9 F 78 16 122/76 06/01/24 11:30 98 F 84 16 116/82 06/01/24 07:01 97.9 F 89 18 115/79 06/01/24 06:22 92 117/77 06/01/24 02:00 97.9 F 98 17 94/54 05/31/24 23:00 93 18 126/86 05/31/24 20:42 95 18 130/95 Pulse Ox 06/01/24 14:17 95 06/01/24 13:53 95 06/01/24 12:00 94 L 06/01/24 11:40 95 06/01/24 11:30 98 06/01/24 07:01 93 L 06/01/24 06:22 06/01/24 02:00 96 05/31/24 23:00 97 05/31/24 20:42 98 Intake and Output 06/01/24 06/01/24 06/01/24 06:59 14:59 22:59 Intake Total 310 Balance 310 Intake: Blood Product 310 Rc As-1 Unit 310 [id number] Other: Voiding Method Toilet # Voids 0 3 Weight 65.771 kg 65.771 kg Results CBC & Chem 7: 06/01/24 08:18 06/01/24 08:18 Labs: Abnormal Lab Results - Last 24 Hours (Table) 05/31/24 05/31/24 06/01/24 Range/Units 23:33 23:33 08:18 WBC 3.1 L (3.8-10.6) k/uL RBC 2.78 L 2.38 L (4.30-5.90) m/uL Hgb 8.5 L 7.3 L (13.0-17.5) gm/dL Hct 28.4 L 24.5 L (39.0-53.0) % MCV 102.1 H 102.8 H (80.0-100.0) fL MCHC 30.1 L 29.7 L (31.0-37.0) g/dL RDW 19.4 H 19.1 H (11.5-15.5) % Lymphocytes # 0.9 L (1.0-4.8) k/uL Metamyelocytes # (Man) 0.04 H (0) k/uL Sodium 130 L (137-145) mmol/L BUN 5 L (9-20) mg/dL Glucose 128 H (74-99) mg/dL Calcium 8.0 L (8.4-10.2) mg/dL Total Protein (6.3-8.2) g/dL Albumin (3.5-5.0) g/dL Crossmatch 06/01/24 06/01/24 Range/Units 08:18 08:18 WBC (3.8-10.6) k/uL RBC (4.30-5.90) m/uL Hgb (13.0-17.5) gm/dL Hct (39.0-53.0) % MCV (80.0-100.0) fL MCHC (31.0-37.0) g/dL RDW (11.5-15.5) % Lymphocytes # (1.0-4.8) k/uL Metamyelocytes # (Man) (0) k/uL Sodium 133 L (137-145) mmol/L BUN 5 L (9-20) mg/dL Glucose (74-99) mg/dL Calcium 7.5 L (8.4-10.2) mg/dL Total Protein 4.1 L (6.3-8.2) g/dL Albumin 2.0 L (3.5-5.0) g/dL Crossmatch See Detail
[2024-06-01 20:07] LABS: Anisocytosis Slight; Basophils % (A) 1 %; Eosinophils # (A) 0.1 k/uL (0-0.7); Eosinophils % (A) 3 %; HCT 30.4 % (39.0-53.0); Hypochromasia Marked; Lymphocytes # (A) 0.9 k/uL (1.0-4.8); Lymphocytes % (A) 25 %; MCH 31.1 pg (25.0-35.0); MCHC 30.5 g/dL (31.0-37.0); MCV 101.7 fL (80.0-100.0); Macrocytosis Moderate; Mean Platelet Volume 7.9; Monocytes # (A) 0.5 k/uL (0-1.0); Monocytes % (A) 14 %; Neutrophils # (A) 1.8 k/uL (1.3-7.7); Neutrophils % (A) 54 %; Platelet Count 231 k/uL (150-450); Poikilocytosis Slight; RBC 2.99 m/uL (4.30-5.90); RDW 18.7 % (11.5-15.5); WBC 3.4 k/uL (3.8-10.6)
[2024-06-01 20:08] LABS: HGB 9.3 gm/dL (13.0-17.5)
--- NOTE | 2024-06-01 20:32 | XR ---
EXAMINATION TYPE: XR chest 1V portable DATE OF EXAM: 06/01/2024 8:06 PM COMPARISON: Chest radiographs from 08/15/2022 CLINICAL INDICATION: Male, 58 years old with history of smoker pre-op; [facility] TECHNIQUE: XR chest 1V portable Frontal view of the chest. FINDINGS: Lungs/Pleura: There is no evidence of pleural effusion, focal consolidation, or pneumothorax. Pulmonary vascularity: Unremarkable. Heart/mediastinum: Cardiomediastinal silhouette is unremarkable. Musculoskeletal: No acute osseous pathology. There is fixation hardware in the lower cervical spine. IMPRESSION: No acute cardiopulmonary disease/process. [facility], , 06/01/2024 8:30 PM
[2024-06-01] MEDS: NICOTINE 14MG/24HR PATCH TRANSDERM SCH (21:00)
[2024-06-01] MEDS: diazePAM 2 MG TAB PO SCH (21:00)
--- NOTE | 2024-06-02 07:12 | P.PN ---
Progress Note - Text Progress Note Date: 06/02/24 Spine Surgery Clinical and Risk Review Stanley Joyce is a 58 yo malepresenting for evaluation of severe mid and low back pain inability to ambulate with LE weakness. It was my pleasure to have seen and examined Stanley Joyce. In our visit today we have had a chance to go over subjective complaints, p hysical examination findings and treatments including the natural course history without intervention and various interventional options. The patient's imaging demonstrates the following: ? T12 AOA4 burst fracture with segmental kyphosis due to anterior collapse ? Malalignment due to fracture ? Central and foraminal stenosis that is severe due to fracture. On a physical exam, Stanley Mcguireemonstrates the following: ? Severe mid and low back pain ? Inability to ambulate due to pain ? LE weakness secondary to fracture and stenosis with new onset UI sx. I have explained to the patient that as their condition progresses it will cause further neurological deficits and eventual paralysis. Based on the patients imaging, physical exam, and the rapid progression and disabling nature of their symptoms, at this time I recommend surgery in the form of a: Open treatment T12 burst fracture with T10-L2 stabilization. I discussed the risk and benefits of this procedure at length with Stanley Joyce. T he patient and family agreed to consider pursuing the procedure above mentioned. Prior to surgery, they should follow up with her PCP (Cardio, ID, IM etc) for clearance. Questions were invited and answered, and the patient wishes to proceed as outlined below. Currently, I am recommendin. Open treatment T12 burst fracture with T10-L2 stabilization 2. Obtain appropriate presurgical workup and clearances as discussed with the patient. 3. Review of surgical risks and benefits as well as an educational packet on the proposed surgical procedure. Risks: All surgical procedures come with inherent risks, including those related to positioning, anesthesia, intraoperative findings, and postoperative complications. It is important to understand that surgery does not come with any guarantee of a successful outcome as complications and adverse events are always possible. The patient was given a handout in the office today discussing the surgical procedure and risks associated with the intervention, both of which were discussed with the patient. These risks include but are not limited to the following: Experiencing same, different or even worse symptoms in back, neck, arms, or legs compared to before surgery. Requiring further surgery or other forms of treatment presently or at some time in the future at same or other levels of the intended spine surgery. On an extreme but fortunately relatively rare basis severe complications such as blindness, stroke, heart attack, temporary and/or permanent nerve injury, paralysis, coma, or may occur, sometimes without known expla nation. Surgical complications may include but are not limited to risk of infection, fluid accumulation in the surgical dissection site, including a seroma or hematoma, that requires additional surgery, wound drainage, bleeding, new numbness or weakness, vision changes/loss, spinal fluid leakage, non-healing and/or infected incision, headaches, difficulty or inability to swallow, hoarseness, hemopneumothorax, pneumothorax, impotence, retrograde ejaculation, vaginal dryness; injury to nerves, spinal cord, blood vessels, lymphatics or other vital organs (i.e., bowel injury, injury to the great vessels); heterotopic bone formation; complications related to the hardware such as screws, rods, cages including misplaced hardware, device failure, instrumentation at the wrong spine level, hardware fracture/breakage, or hardware loosening; vertebral failure of the spinal column above or below the newly placed hardware; retained surgical instrumentations or devices and the need for further surgery. Medical risks of the planned spine surgery include but are not limited to generalized Infections to the whole body or local areas outside of the surgical site (sepsis), heart attack, bleeding, anaphylaxis, meningitis, seizure, epilepsy, hearing loss, burn vela, laceration of the head or other areas of the body, bruising, hypersensitivity of the skin, bladder over distension; allergic reaction; shoulder injury related to positioning; fat, blood and air clots to other areas of the body like heart, lungs, brain; failure of internal organs such as lungs, kidneys, liver and excessive bleeding. If blood transfusions are necessary, note that transfusions may cause intolerance reactions such as anaphylaxis or other complex reactions. Despite best efforts, the results of spine surgery might not heal in terms of bone, soft tissues such as skin, fascia, ligaments, and joints. Additionally, in order to achieve best possible results, spine surgery may be carried out beyond the initially planned levels and involve decompression, fusion including insertion of hardware at levels other than the original intended area of surgical interest change some portions of the procedure in order to ensure the best possible outcomes. With spine surgery and spinal fusion, there are different off label uses of instrumentation (devices, implants and hardware) as well as biological substances (bone morphogenic proteins, demineralized bone matrix) as well as using extra bone from allograft sources (i.e. cadaver bone) or autograft (iliac crest bone, ribs, or the spine itself). The patient has been given information about these practices and their inherent risks and benefits. The patient has had a chance to review all the listed information, has been given print outs detailing this information, and has had all his/her questions answered to their satisfaction. It was my pleasure to have seen and examined Stanley Joyce. In our visit today we have had a chance to go over my understanding of our patient's current condition, the natural course history without intervention and various interventional options. Questions were invited and answered, and the patient wishes to proceed as outlined above. I have seen and examined the patient for 25 minutes and we have spent more than 50% of the time in repeat and detailed counseling about the patient's condition, its natural course history without and as much as can be predicted with surgery and re-review of various surgical treatment options. In conclusion, Stanley Joyce and their family requested we proceed with the above suggested surgery and are willing to accept risks and limitations of the suggested surgery as the nature of the disease process and our best attempts at treatment for the condition. Thank you again for allowing us to be part of your patient's care. Please don't hesitate to contact me if you have any further questions. Signed and authenticated by: Zbigniew Ratliff [facility] [address] [facility], [address] [address]
--- NOTE | 2024-06-02 07:39 | US ---
EXAMINATION TYPE: US abdomen limited DATE OF EXAM: 06/02/2024 COMPARISON: CT 08/15/22 CLINICAL INDICATION: Male, 58 years old with history of Evaluate liver; Eval liver. Patient states so metimes has abd pain . Pt getting back surgery TECHNIQUE: Grayscale and color Doppler imaging of the right upper quadrant was performed. FINDINGS: EXAM MEASUREMENTS: Liver Length: 17.8 cm Gallbladder Wall: 0.1 cm CBD: 0.5 cm Right Kidney: 9.9 x 5.3 x 4.1 cm DRY SAND MOLDER NOTES:Slightly limited, patient unable to roll LLD due to back pain Pancreas: Obscured by bowel gas Liver: Upper limits of normal in size, increased echogenicity. Small amount of free fluid seen poste rior to the liver Gallbladder: wnl, unable to eval in LLD due to limitations Evidence for sonographic Pat's sign: no CBD: wnl Right Kidney: wnl Diffuse increased echogenicity of the liver. Noncirrhotic morphology. No focal lesion. Questionable f ree fluid posterior to the liver versus bowel. Gallbladder is contracted without evidence of wall thi ckening or shadowing calculi. No pericholecystic fluid. Negative sonographic Pat's sign. Common bi le duct is within normal limits. Right kidney demonstrates no solid mass, shadowing calculi, or hydro nephrosis. IMPRESSION: 1. No ultrasound evidence for acute process. 2. Hepatic steatosis. [facility], , 06/02/2024 7:37 AM
[2024-06-02] MEDS ORDERED: NEOSTIGMINE 1 MG/ML 10 ML VIAL ONE (08:14)
[2024-06-02] MEDS ORDERED: GLYCOPYRROLATE 0.2 MG/ML 2 ML VIAL ONE (08:14)
[2024-06-02] MEDS ORDERED: HYDROmorphone (PF) 1 MG/ML ONE (08:14)
[2024-06-02] MEDS ORDERED: ROCURONIUM 10 MG/ML (5 ML VIAL) IV ONE (08:14)
[2024-06-02] MEDS ORDERED: PROPOFOL 10 MG/ML 20 ML VIAL IV ONE (08:14)
[2024-06-02] MEDS ORDERED: SUCCINYLCHOLINE CHLORIDE 200 MG/10 ML VIAL IV ONE (08:14)
[2024-06-02] MEDS ORDERED: MIDAZOLAM 2 MG/2 ML VIAL ONE (08:14)
[2024-06-02] MEDS ORDERED: TRANEXAMIC 1,000 MG/100ML-NACL PREMIX BAG ONE (08:14)
[2024-06-02] MEDS ORDERED: KETAMINE HCL IN 0.9 % NACL 50 MG/5 ML SYRINGE ONE (08:14)
[2024-06-02] MEDS ORDERED: LIDOCAINE 1% INJ 10MG/ML (20 ML MDV) ONE (08:14)
[2024-06-02] MEDS ORDERED: fentaNYL (PF) 50 MCG/ML 2 ML AMP ONE (08:14)
[2024-06-02] MEDS: IV FLUID CONTINUATION 900 ML IV ONE (08:19)
[2024-06-02] MEDS: THROMBIN (BOVINE) 5,000 UNIT VIAL TOPICAL ONE (09:02)
[2024-06-02] MEDS: VANCOMYCIN 1,000 MG VIAL MISCELLANE ONE (10:16)
[2024-06-02] MEDS: ceFAZolin 3,000 MG in SODIUM CHLORIDE 0.9% IRRIGATIO 3,000 ML IRRIGATION ONE (10:17)
[2024-06-02] MEDS: GENTAMICIN 80 MG in SODIUM CHLORIDE 0.9% IRRIGATIO 3,000 ML IRRIGATION ONE (10:18)
[2024-06-02] MEDS: LIDOCAINE 2%-EPI 1:100,000 20 ML VIAL SQ ONE (10:19)
[2024-06-02] MEDS: BUPIVACAINE (PF) 0.5% 30 ML VIAL SQ ONE (10:20)
--- NOTE | 2024-06-02 10:47 | XR ---
Intraoperative/procedural fluoroscopic services were provided for T12 burst fracture with bilateral p edicular screws and rods at T10, T11, L1, and L2. Total fluoroscopy time is 2.26 minutes with a total of 5 submitted images to PACS. Total DAP 14.214 Gycm2. Please see the operative note for further de tails. [facility], , 06/02/2024 10:44 AM
[2024-06-02] MEDS ORDERED: CYCLOBENZAPRINE 5 MG TAB PO PRN (10:48)
[2024-06-02] MEDS ORDERED: HYDROcodone/APAP 5-325MG 1 EACH TAB PO PRN (10:48)
--- NOTE | 2024-06-02 11:01 | P.OP ---
Date of Procedure: 06/02/24 Preoperative Diagnosis: 1. T12 AOA4 BURST FRACTURE, UNSTABLE WITH STENOSIS AND RETROPULSION 2. T11-L1 STENOSIS DUE TO FRACTURE AND RETROPULSION 3. LE WEAKNESS 4. LOW BACK PAIN 5. S/P MULTIPLE FALLS FROM STANDING 6. COMPLEX MEDICAL PATIENT Postoperative Diagnosis: 1. T12 AOA4 BURST FRACTURE, UNSTABLE WITH STENOSIS AND RETROPULSION 2. T11-L1 STENOSIS DUE TO FRACTURE AND RETROPULSION 3. LE WEAKNESS 4. LOW BACK PAIN 5. S/P MULTIPLE FALLS FROM STANDING 6. COMPLEX MEDICAL PATIENT Procedure(s) Performed: 1. OPEN TREATMENT T12 BURST FRACTURE 2. T10-L2 POSTEROLATERAL INSTRUMENTED FUSION 3. T10-L2 SEGMENTAL INSTRUMENTATION 4. T11-L1 BILATERAL LAMINECTOMY, FACETECTOMY AND FORAMINOTOMY FOR NEURAL DECOMPRESSION DUE TO FRACTURE RETROPULSION AND STENOSIS 5. CEMENT AUGMENTATION OF T10 AND L2 VERTEBRAL BODIES AND SCREWS USE OF IONM ALL SCREWS TESTING > 20 mA Implants: -ZAIN EVEREST RODS AND SCREWS -ZAIN CEMENT Anesthesia: NAZARIO Surgeon: Zbigniew Dick Stringed Instrument Repairer #1: Olive Lee (WAS PRESENT AND ASSISTED WITH ALL ASPECTS OF THE CASE FROM POSITION TO DRESSIN GPLACEMENT) Estimated Blood Loss (ml): 150 IV fluids (ml): 1,200 Urine output (ml): 900 Pathology: none sent Condition: stable Disposition: PACU Indications for Procedure: Stanley Joyce is a 58 yo malepresenting for evaluation of severe mid and low back pain inability to ambulate with LE weakness. It was my pleasure to have seen and examined Stanley Joyce. In our visit today we have had a chance to go over subjective complaints, physical examination findings and treatments including the natural course history without intervention and various interventional options. The patient's imaging demonstrates the following: ? T12 AOA4 burst fracture with segmental kyphosis due to anterior collapse ? Malalignment due to fracture ? Central and foraminal stenosis that is severe due to fracture. On a physical exam, Stanley Mcguireemonstrates the following: ? Severe mid and low back pain ? Inability to ambulate due to pain ? LE weakness secondary to fracture and stenosis with new onset UI sx. I have explained to the patient that as their condition progresses it will cause further neurological deficits and eventual paralysis. Based on the patients imaging, physical exam, and the rapid progression and disabling nature of their symptoms, at this time I recommend surgery in the form of a: Open treatment T12 burst fracture with T10-L2 stabilization. I discussed the risk and benefits of this procedure at length with Stanley Joyce. The patient and family agreed to consider pursuing the procedure above mentioned. Prior to surgery, they should follow up with her PCP (Cardio, ID, IM etc) for clearance. Questions were invited and answered, and the patient wishes to proceed as outlined below. Currently, I am recommendin. Open treatment T12 burst fracture with T10-L2 stabilization Description of Procedure: OPEN TREATMENT T12 BURST FRACTURE WITH T11-L1 LAMINECTOMY AND T10-L2 STABILIZATION AND FUSION (MIS FREE HAND) The patient was seen and examined in the preoperative area. All preoperative protocols were followed. Informed consent was obtained, risks and benefits of the procedure were discussed at length. Risks including bleeding infection damage to the surrounding tissue and risk of reoperation were discussed with the patient. Risk of anesthesia up to and including was discussed with the patient. These are outlined in the risk review. They were willing to accept these risks and all of the risks of surgery. The patient was given a weight- based dose of antibiotics in the form of 2 g Ancef. The patient was seen and evaluated by the anesthesia team who deemed them fit for surgery. The site was marked, the patient was willing to proceed with the procedure. The patient was transferred to the operative suite by the Department of anesthesia. They were then drifted off to sleep by the department anesthesia and GETA was performed. The patient tolerated this well. pre-positioning motors were obtained.Leonard in place from the floor. Once confirmation of lines and ventilation Hancock head clamp was placed on the patient and secured and the patient was transferred to a [prone Ryan table very carefully] with the Hancock head filter tank tender helper the head was secured and placed into an optimal position x- ray confirmed this position. Post-positioning motors remained stable. All bony prominences including wrists, elbows, axilla, chest, hips, and thighs, and feet were padded very well. Special attention was paid to the genitalia and these were padded accordingly. SCDs were placed on bilateral lower extremities and were connected. Arms were well padded and placed tucked at his side thumbs down. Shoulders were gently taped down to the table.. Once in position, again we confirmed good ventilation capabilities and that lines were running appropriately. The patient's posterior cervical spine was then exposed. 1010s were placed outlining the incision site. Standard alcohol was used to clean the incision site and allowed to dry. C-arm was used to biomark the patient and confirm level for incision which was marked with a skin marker. Operative briefing was performed with all teams and everyone in agreement to proceed. The patient was then prepped and draped in a normal sterile fashion. Timeout was then performed and all parties were in agreement with the procedure to be performed. Midline skin incision made over the previously bio-marked area and dissection taken down to the lamina of T11-L1. Subperiosteal dissection was then performed and a penfield placed at the pars of T12 for lateral image and marking of levels for decompression. Bilateral laminectomy, complete facetectomy and foraminotomies were done from T11-L1 for complete neural decompression around the fracture site and to alleviate pressure from the retropulsion. Loose bony fragments were removed. Any others were tamped forward with a curette. Once decompression was completed we moved to instrumentation. The wound was irrigated and meticulous hemostasis achieved. Biplanar fluoroscopy was then used along with Jamshidis to access the pedicles bilaterally from T10-L2. Jamshidi was advanced on AP until it was retirement through the pedicle and then lateral checked to ensure at the back of the body. Once this was confirmed, the Jamshidi was advanced into the body and a wire placed in its void. This was repeated b/l at all levels noted. Once all wires were in, they were checked on AP and confirmed to be in good position. We then placed screws over wires using lateral imaging. Once the screw was at the back of the body, wire was removed. Screw was advanced to an appropriate level. Once all screws were placed, they were tested and all tested > 20 mA. We then proceeded to cement augmentation. Screws and vertebral body at T11 and L2 were augmented with cement under lateral imaging. Good cement fill was noted. No extravasation or myelogram noted. Pt remained stable through cementation. We then proceeded to or[place] placement. Rods were then sized and selected and cut to length. They were bent accordingly. Rods were then placed subfacially through all tulip heads. All set screws were placed and were then final tightened. Meticulous hemostasis was performed. The wound was then copiously irrigated with 3 L of Ancef irrigation followed by 3 L of gentamicin irrigation followed by 3 bottles of Irricept through the case and 1 L betadine which was then washed with 3 L of normal sterile saline. Facet joints were further drilled at each level to allow for fusion Surgicel was placed over the dura. Aautograft were placed in the posterior lateral gutters. This was impacted into position for fusion. 2 g of powdered vancomycin was then placed deep. We then proceeded with layered closure first in the deep fascia with #1 PDS then in the deep fascia. 0 Vicryl was used in the deep subq fascia and 2-0 in the superficial subq. Skin rosario then approximated skin edges. The wound edges approximated very well. The wound was then cleaned and dressed sterilely with an operative foam dressing 4 x 4 and Tegaderm. The patient was transferred back to their hospital bed atraumatically. The patient was then awakened and extubated by the department of anesthesia having tolerated the procedure very well with no complications. They were transferred to the postoperative care unit in stable condition.
[2024-06-02] MEDS: HYDROmorphone 0.5 MG/0.5 ML SYRINGE IVP PRN (11:22)
[2024-06-02] MEDS: LACTATED RINGERS 1,000 ML IV ONE (12:29)
[2024-06-02] MEDS: HYDROcodone/APAP 10-325MG 1 EACH TAB PO PRN (12:53)
[2024-06-02] MEDS: LACTATED RINGERS 1,000 ML IV SCH (12:56)
[2024-06-02 13:36] LABS: % Iron Saturation 16.39 (15.00-50.00)
[2024-06-03 04:58] LABS: Anisocytosis Slight; Basophils % (A) 1 %; Eosinophils # (A) 0.1 k/uL (0-0.7); Eosinophils % (A) 1 %; HCT 35.9 % (39.0-53.0); HGB 11.1 gm/dL (13.0-17.5); Hypochromasia Marked; Lymphocytes % (A) 15 %; MCH 30.7 pg (25.0-35.0); Macrocytosis Moderate; Mean Platelet Volume 7.9; Monocytes # (A) 0.9 k/uL (0-1.0); Monocytes % (A) 15 %; Neutrophils % (A) 66 %; Platelet Count 188 k/uL (150-450); Poikilocytosis Slight; RBC 3.62 m/uL (4.30-5.90); RDW 19.4 % (11.5-15.5); WBC 6.2 k/uL (3.8-10.6)
[2024-06-03 05:09] LABS: African American GFR (CKD) >90 (>60 ml/min/1.73 sqM); Anion Gap 4 mmol/L; Blood Urea Nitrogen <2 mg/dL (9-20); Carbon Dioxide 25 mmol/L (22-30); Chloride 104 mmol/L (98-107); Glucose 100 mg/dL (74-99); Non-African American GFR(CKD) >90 (>60 ml/min/1.73 sqM); Potassium 3.7 mmol/L (3.5-5.1); Sodium 133 mmol/L (137-145)
--- NOTE | 2024-06-03 07:54 | P.PN ---
Subjective Progress Note Date: 06/03/24 Principal diagnosis: Mid-Low back pain T12 burst fracture Patient seen and examined this morning. Patient states he has moderate sharp and aching thoracic pain at the surgical site. He states it intensifies with any activity. Medications have been adjusted. Informed patient that he will need to increase his activity today and sit up in chair for meals once his pain is better controlled. Patient verbalizes understanding. Utilize ice packs as well to manage pain. Adames catheter may be removed this morning. Surgical incision to the thoracic spine, dressing is CDI. No acute concerns. Objective - Vital Signs Vital signs: Vital Signs Temp 98.5 F 06/03/24 01:04 Pulse 117 H 06/03/24 01:04 Resp 16 06/03/24 01:04 BP 137/93 06/03/24 01:04 Pulse Ox 90 L 06/03/24 01:04 FiO2 Intake & Output 06/02/24 06/03/24 06/03/24 18:59 06:59 18:59 Intake Total 1629 480 Output Total 1050 3900 Balance 579 -3420 Intake: IV 1352 Oral 480 Blood Product 277 Rc Pheresis As-3 Unit 277 [id number] Output: Urine 900 3900 Estimated Blood Loss 150 Other: Voiding Method Toilet Indwelling Catheter - Exam Physical Examination General: The patient is awake and alert, in no acute distress Skin: Skin is warm and dry with no obvious rashes or lesions. Surgical incision to the thoracic spine, dressing is clean dry and intact. Eye: Pupils are equal, round and reactive to light, extra-ocular movements are intact; there is normal conjunctiva bilaterally. Neck: The neck is supple, there is no tenderness and ROM intact. Cardiovascular: There is a regular rate and rhythm. No murmur, rub or gallop is appreciated. Respiratory: Respirations are non-labored, breath sounds are equal. Gastrointestinal: Soft, non-distended, non-tender abdomen. Back: There is moderate tenderness to palpation around the thoracic incision, there is no obvious deformity . Musculoskeletal: ROM limited secondary to pain and stiffness from surgical procedure. Right: Shoulder abduction 5/5, elbow flexors 5/5, wrist dorsiflexors 5/5. finger abductor 5/5, salesman/owner 5/5, hip flexor 5/5, knee flexor 5/5, ankle dorsiflexor 5/5, ankle plantarflexion 5/5 and extensor hallucis 5/5. Left: Shoulder abduction 5/5, elbow flexors 5/5, wrist dorsiflexors 5/5. finger abductor 5/5, salesman/owner 5/5, hip flexor 5/5, knee flexor 5/5, ankle dorsiflexor 5/5, ankle plantarflexion 5/5 and extensor hallucis 5/5. Neurological: CN 2-12 intact. There are no obvious motor or sensory deficits. Movement and coordination equal and intact. Sensory exam to light touch intact C5-T1 and intact from L2-S1. Reflexes 2/4 in bilateral upper and lower extremities. Negative Hoffmans, babinski, and clonus signs. Psychiatric: Cooperative, appropriate mood & affect, normal judgment. - Labs CBC & Chem 7: 06/03/24 04:21 06/03/24 04:21 Labs: Abnormal Lab Results - Last 24 Hours (Table) 06/01/24 06/02/24 06/03/24 Range/Units 08:18 04:21 04:21 RBC 3.62 L (4.30-5.90) m/uL Hgb 11.1 L (13.0-17.5) gm/dL Hct 35.9 L (39.0-53.0) % RDW 19.4 H (11.5-15.5) % Sodium (137-145) mmol/L BUN (9-20) mg/dL Creatinine (0.66-1.25) mg/dL Glucose (74-99) mg/dL Calcium (8.4-10.2) mg/dL Iron 39 L (65-175) UG/DL Transferrin 170.0 L (204.0-354.0) mg/dL Crossmatch See Detail 06/03/24 Range/Units 04:21 RBC (4.30-5.90) m/uL Hgb (13.0-17.5) gm/dL Hct (39.0-53.0) % RDW (11.5-15.5) % Sodium 133 L (137-145) mmol/L BUN <2 L (9-20) mg/dL Creatinine 0.60 L (0.66-1.25) mg/dL Glucose 100 H (74-99) mg/dL Calcium 8.0 L (8.4-10.2) mg/dL Iron (65-175) UG/DL Transferrin (204.0-354.0) mg/dL Crossmatch Assessment and Plan Assessment: Postop day 1: T12 ORIF with T10-L1 decompression and stabilization Plan: -Appreciate distributor sales consultant and team management. -Activity: Ambulate QID, OOB all meals, up and about, limit lifting bending twisting to less than 5 lbs. Use walker or cane if needed for stability. -Daily PT/OT, increase ambulation strength and balance. -Brace when up and about, not needed in bed or chair -Prescription for TLSO brace will be placed in chart, this is not needed for patient to participate with therapy. -Pain control: Adequate at this time -Meds: reviewed -GI ppx: senna, Miralax -DEACON adames this morning -DVT PPX: Aspirin 81mg daily -Hygiene: Maintain incision clean and dry. May change dressing as needed, please document in notes if performed. -Encourage IS 10x/hr -Dispo: Anticipate discharge home with homecare in the next 48hrs.. *I reviewed and discussed this case with my attending Dr. Dick, whom has reviewed this chart and films and is in agreement with assessment and plan of care as outlined above. I have personally seen and examined the patient, performed the documentation and the assessment and plan as written. Number of minutes spent on the visit: 20m.
[2024-06-03] MEDS: HYDROcodone/APAP 10-325MG 1 EACH TAB PO SCH (08:12)
[2024-06-03] MEDS: CYCLOBENZAPRINE 10 MG TAB PO SCH (08:12)
[2024-06-03] MEDS: SENNOSIDES-DOCUSATE SODIUM 1 EACH TAB PO SCH (08:13)
[2024-06-03] MEDS: KETOROLAC 15 MG/ML 1 ML VIAL IVP SCH (12:10)
--- NOTE | 2024-06-03 14:44 | CT ---
EXAMINATION TYPE: CT thor lumbar spine wo con DATE OF EXAM: 06/03/2024 2:07 PM COMPARISON: Previous CT study 06/01/2024. CLINICAL INDICATION: Male, 58 years old with history of s/p T12 ORIF with T10-L1 stabilization and de comp; s/p T12 ORIF with T10-L1 stabilization and decomp TECHNIQUE: Axial images of the thoracic and lumbar spine were obtained without contrast. Coronal and sagittal reformats were performed. 3-D reformats of the bones were created on a separate workstation and submitted for review. CT Contrast: CT DLP: 1615.2 mGycm, Automated exposure control for dose reduction was used. FINDINGS: Osseous structures are diffusely demineralized. Interval postoperative changes compatible with hammerer ior decompression and fusion, with transpedicular screw and orlando fusion hardware visualized spanning T 10-L2. Persistent moderate compression deformity of the T12 vertebral body with similar posterior ret ropulsion into the spinal canal. Decompression with laminectomy defects now present at T12 and L1. Ce ment/vertebral augmentation visualized at T10 and L2 associated with the transpedicular screws. No de finite periprosthetic lucency or new acute fracture. Extensive postoperative related subcutaneous gas and edema throughout the paraspinal soft tissues and spinal canal. Overall, evaluation of the spinal canal severely limited due to streak artifact. Multilevel facet arthropathy and intervertebral disc space loss/degenerative changes seen at the remaining thoracic and lumbar spinal levels, similar to m ost recent prior imaging. Overlying skin rosario. Similar mild vertebral height loss involving the T9 superior endplate with associated Schmorl's node formation. Partially visualized anterior cervical spinal fusion hardware. L5 pars defects bilaterally. Imaging through the partially visualized lungs demonstrates diffuse centrilobular emphysema. Small ri ght and trace left pleural effusions with adjacent lower lobe consolidative changes. Calcified athero matous disease of the thoracic aorta without aneurysmal dilatation. Coronary artery calcifications. P artially visualized abdomen without evidence of bowel obstruction. Secretions noted in the midportion of the distal trachea (image 42 series 29). IMPRESSION: 1. Interval postoperative changes compatible with posterior decompression and fusion spanning T10-L2 as described above. No periprosthetic lucency or new acute fracture. 2. Small right and trace left pleural effusions with adjacent lower lobe consolidative changes which could reflect compressive atelectasis and/or pneumonia. [facility]: [id number], 06/03/2024 2:41 PM
--- NOTE | 2024-06-03 20:07 | P.PN ---
Progress Note - Text Progress Note Date: 06/03/24 - Chief Complaint Low back pain - History of Present Illness Pleasant 58-year-old patient who follows with Dr. Selina Vincent. Chronic medical condition include COPD, GERD, hyperlipidemia, hypertension, chronic back pain with spasm causing disability and a prior history of neck surgery. Cannot lay flat because of neck problems. Has had neck fusion surgery. About a month ago he fell from his front door onto the porch on the on his buttock. Since then has been having creasing pain. He is able to get around the house. Has pain going down the legs. No change in his bowel or bladder pattern. Patient does smoke a pack of cigarettes a day. At drinks 6 beer pack a night for a long time. Because of his back he is on disability. He had his CAT scan done on May 28 that showed a T12 burst fracture. Patient is asked to come into the ER and admitted for the same. No cardiac symptoms. June 03: Had come to see the patient yesterday had gone to the OR. Today sitting at the edge of the bed. His girlfriend and his son and daughter present. Complaining of significant pain. Spoke at length about his diet to him and his family. Patient on Valium for DT prophylaxis. Active Medications Hydrocodone Bitart/Acetaminophen (Hydrocodone/Apap 5-325mg 1 Each Tab) 1 each PO Q4HR PRN PRN Reason: Pain Scale 4 - 6 Hydrocodone Bitart/Acetaminophen (Hydrocodone/Apap 10-325mg 1 Each Tab) 1 each PO Q4HR [facility] Last Admin: 06/03/24 15:17 Dose: 1 each Albuterol/Ipratropium (Ipratropium-Albuterol 3 Ml Neb) 3 ml INHALATION RT-QID PRN PRN Reason: Shortness Of Breath Atorvastatin Calcium (Atorvastatin 40 Mg Tab) 40 mg PO HS [facility] Last Admin: 06/02/24 21:14 Dose: 40 mg Budesonide/Formoterol Fumarate (Symbicort 80-4.5 Mcg Inhaler) 2 puff INHALATION RT-BID [facility] Last Admin: 06/03/24 09:00 Dose: 2 puff Cyclobenzaprine HCl (Cyclobenzaprine 10 Mg Tab) 10 mg PO TID [facility] Last Admin: 06/03/24 15:17 Dose: 10 mg Diazepam (Diazepam 2 Mg Tab) 1 mg PO TID [facility] Last Admin: 06/03/24 15:17 Dose: 1 mg Enoxaparin Sodium (Enoxaparin 40 Mg/0.4 Ml Syringe) 40 mg SQ DAILY [facility] Last Admin: 06/03/24 08:14 Dose: 40 mg Ergocalciferol (Ergocalciferol 1,250 Mcg (50,000 Iu) Capsule) 1,250 mcg PO Mo@0900 [facility] Fluticasone Propionate (Fluticasone Nasal 50mcg/Roebling 16gm Btl) 1 spray EA NOSTRIL DAILY [facility] Last Admin: 06/03/24 08:13 Dose: 1 spray Gabapentin (Gabapentin 300 Mg Cap) 300 mg PO BID [facility] Last Admin: 06/03/24 08:11 Dose: 300 mg Hydromorphone HCl (Hydromorphone 0.5 Mg/0.5 Ml Syringe) 0.5 mg IVP Q3HR PRN PRN Reason: Moderate Pain (Scale 4 to 6) Last Admin: 06/01/24 17:39 Dose: 0.5 mg Hydromorphone HCl (Hydromorphone 1 Mg/Ml 1 Ml Syringe) 1 mg IVP Q3HR PRN PRN Reason: Severe Pain (Scale 7 to 10) Last Admin: 06/03/24 19:47 Dose: 1 mg Lactated Ringer's (Lactated Ringers) 1,000 mls @ 20 mls/hr IV .Q24H [facility] Last Admin: 06/03/24 08:13 Dose: 20 mls/hr Ketorolac Tromethamine (Ketorolac 15 Mg/Ml 1 Ml Vial) 15 mg IVP Q6HR [facility] Stop: 06/08/24 07:16 Last Admin: 06/03/24 17:42 Dose: 15 mg Miscellaneous Information (Potassium Replacement Protocol 1 Each Misc) 1 each MISCELLANE DAILY PRN; Protocol PRN Reason: Per Protocol Naloxone HCl (Naloxone 0.4 Mg/Ml 1 Ml Vial) 0.2 mg IV Q2M PRN PRN Reason: Opioid Reversal Nicotine (Nicotine 14mg/24hr Patch) 1 patch TRANSDERM DAILY [facility] Last Admin: 06/03/24 08:14 Dose: 1 patch Ondansetron HCl (Ondansetron 4 Mg/2 Ml Vial) 4 mg IVP Q8HR PRN PRN Reason: Nausea And Vomiting Pantoprazole Sodium (Pantoprazole 40 Mg Tablet) 40 mg PO AC-BRKFST [facility] Last Admin: 06/03/24 06:55 Dose: 40 mg Quetiapine Fumarate (Quetiapine 100 Mg Tab) 300 mg PO HS [facility] Last Admin: 06/02/24 21:14 Dose: 300 mg Senna/Docusate Sodium (Sennosides-Docusate Sodium 1 Each Tab) 2 each PO DAILY [facility] Last Admin: 06/03/24 08:13 Dose: 2 each Thiamine HCl (Thiamine 100 Mg Tab) 100 mg PO DAILY [facility] Last Admin: 06/03/24 08:13 Dose: 100 mg Social history: Lives with his girlfriend Mara. Drinks a sixpack of beer every night. Smokes a pack a day for many years. On disability. Physical examination: VITAL SIGNS: 98.2, 114, 18, 109 x 60, 94% room air GENERAL: BMI 20.2, sitting up edge of the bed,. Spider nevi on upper chest EYES: Pupils equal. Conjunctiva froylan l. HEENT: External appearance of nose and ears normal, oral cavity grossly normal. NECK: JVD not raised; masses not palpable. HEART: First and second heart sounds are normal; no edema. LUNGS: Respiratory rate normal; decreased breath sound. ABDOMEN: Soft, nontender, liver spleen not palpable, no masses palpable. PSYCH: Alert and oriented x3; mood and affect froylan l. MUSCULOSKELETAL:No Clubbing/cyanosis;muscles-grossly intact. . Dupuytren's contracture on both hands. Some missing digit. Dressing over the incision site. Erythema-ab agne, on right knee from sitting in front of the heater NEUROLOGICAL: [Cranial nerves grossly intact; no facial asymmetry, INVESTIGATIONS, reviewed in the clinical context: June 03: White count 6.2 hemoglobin 11.1 platelets 188 sodium 133 potassium 3.7 creatinine 0.6 Iron 39. TIBC 238. Percent saturation 6.3. Transferrin 170. Ferritin 187 B12 399 folate June 01, 2024: White count 3.1 hemoglobin 7.3 platelets 241 sodium 133 potassium 3.5 BUN 5 creatinine 0.66 albumin May 31: White count 3.8 hemoglobin 8.5 sodium 130 potassium 3.8 Thoracolumbar MRI: Compression deformity of the T12 vertebral body with bony edema on inversion recovery sequences with 25 to 50% height loss. Mild retropulsion up to 5 mm. Some DJD changes. No significant spinal stenosis. Assessment plan: -Compression deformity of T12 vertebral body with bony edema, resulting from a fall in the buttock about a month ago. Subsequently patient has bilateral radiculopathy and some lower extremity paresis. No involvement of the bladder or the bowel. Surgical repair by Dr. Dick: June 02 Activity per Ortho -Prior chronic low back pain and spasms and also prior history of cervical spine fusion Resume home dose of oxycodone 15 mg 4 times daily. Stopped scheduled Lyons 5. Use only as needed. -Alcohol use disorder Patient drinks 6 beers a night. Will do CIWA scale. And for prophylaxis will give Valium 1 mg every 8. Thiamine. Folic acid. -Moderate protein calorie malnutrition Ensure 3 times daily Consult dietitian -Chronic nicotine dependence cigarette smoker Nicotine patch -Macrocytic anemia, of chronic disease Reviewed iron studies, B12, folate -GERD PPI -COPD in a smoker DuoNeb. As needed. Symbicort . Resume home dose of scheduled oxycodone. Stop scheduled Lyons. Only as needed. Activity as tolerated. Diet discussed at length with the patient and family at the bedside. Consult dietitian for malnutrition Thank you Dr. Dick - Past Medical History Past Medical History: COPD, GERD/Reflux, Hyperlipidemia, Hypertension, Vascular Disorder Additional Past Medical History / Comment(s): back pain & spasms,anemia. hx neck surgery,. cant lay flat with neck issues, need to be propped up. becomes dizzy when sits up @times History of Any Multi-Drug Resistant Organisms: None Reported Past Surgical History: Hernia Repair, Orthopedic Surgery Additional Past Surgical History / Comment(s): amputation rt index finger,reattachment of the lt hand thumb, neck fusion, attempted neck fusion with infection to larynx, lt hand surgery, lt carpal tunnel surgery, release in lt elbow, aortogram Past Anesthesia/Blood Transfusion Reactions: Previous Problems w/ Anesthesia Additional Past Anesthesia/Blood Transfusion Reaction / Comm: woke up during c arpal tunnel surgery, woke up @end of neck surgery before was supposed to,. unable to lay flat d/t neck pain-needs to have head elevated Past Psychological History: Panic Disorder, PTSD Smoking Status: Current every day smoker Past Alcohol Use History: Abuse, Daily, Heavy Past Drug Use History: None Reported
--- NOTE | 2024-06-04 06:50 | P.PN ---
Subjective Progress Note Date: 06/04/24 Principal diagnosis: Mid-Low back pain T12 burst fracture Patient seen and examined this morning. Patient is resting comfortably in bed. Patient continues to report increased pain, medications have been adjusted. Patient may restart his Xarelto, Lovenox has been discontinued. Continue to encourage patient to change his position every 2 hours and to be up with physical therapy. Patient should be in chair for all meals. Prescription for TLSO brace is in chart. Surgical dressing to the thoracolumbar spine is clean dry and intact, this may be changed today with placement of an Optifoam dressing. Continue to encourage patient use of incentive spirometer 10 times an hour while awake. No acute concerns. Objective - Vital Signs Vital signs: Vital Signs Temp 98.2 F 06/04/24 01:34 Pulse 78 06/04/24 01:34 Resp 17 06/04/24 01:34 BP 119/79 06/04/24 01:34 Pulse Ox 90 L 06/04/24 01:34 FiO2 Intake & Output 06/03/24 06/03/24 06/04/24 06:59 18:59 06:59 Intake Total 480 Output Total 3900 1200 Balance -3420 -1200 Intake: Oral 480 Output: Urine 3900 1200 Uretheral (Leonard) 800 Other: Voiding Method Indwelling Catheter Urinal Urinal # Voids 1 1 - Exam Physical Examination General: The patient is awake and alert, in no acute distress Skin: Skin is warm and dry with no obvious rashes or lesions. Surgical incision to the thoracic spine, dressing is clean dry and intact. Eye: Pupils are equal, round and reactive to light, extra-ocular movements are intact; there is normal conjunctiva bilaterally. Neck: The neck is supple, there is no tenderness and ROM intact. Cardiovascular: There is a regular rate and rhythm. No murmur, rub or gallop is appreciated. Respiratory: Respirations are non-labored, breath sounds are equal. Gastrointestinal: Soft, non-distended, non-tender abdomen. Back: There is moderate tenderness to palpation around the thoracic incision, there is no obvious deformity . Musculoskeletal: ROM limited secondary to pain and stiffness from surgical procedure. Right: Shoulder abduction 5/5, elbow flexors 5/5, w rist dorsiflexors 5/5. finger abductor 5/5, assorter 5/5, hip flexor 5/5, knee flexor 5/5, ankle dorsiflexor 5/5, ankle plantarflexion 5/5 and extensor hallucis 5/5. Left: Shoulder abduction 5/5, elbow flexors 5/5, wrist dorsiflexors 5/5. finger abductor 5/5, assorter 5/5, hip flexor 5/5, knee flexor 5/5, ankle dorsiflexor 5/5, ankle plantarflexion 5/5 and extensor hallucis 5/5. Neurological: CN 2-12 intact. There are no obvious motor or sensory deficits. Movement and coordination equal and intact. Sensory exam to light touch intact C5-T1 and intact from L2-S1. Reflexes 2/4 in bilateral upper and lower extremities. Negative Hoffmans, babinski, and clonus signs. Psychiatric: Cooperative, appropriate mood & affect, normal judgment. - Labs CBC & Chem 7: 06/03/24 04:21 06/03/24 04:21 Labs: Abnormal Lab Results - Last 24 Hours (Table) 06/01/24 Range/Units 08:18 Crossmatch See Detail Assessment and Plan Assessment: Postop day 2: T12 ORIF with T10-L1 decompression and stabilization Plan: -Appreciate weight loss consultant and team management. -Activity: Ambulate QID, OOB all meals, up and about, limit lifting bending twisting to less than 5 lbs. Use walker or cane if needed for stability. -Daily PT/OT, increase ambulation strength and balance. -Brace when up and about, not needed in bed or chair -Prescription for TLSO brace will be placed in chart, this is not needed for patient to participate with therapy. -Pain control: Medications have been adjusted. Encourage patient use of oral medications and ice therapy. -Meds: reviewed -GI ppx: senna, Miralax -DVT PPX: Aspirin 81mg daily -Hygiene: Maintain incision clean and dry. May change dressing as needed, please document in notes if performed. -Encourage IS 10x/hr -Dispo: Anticipate discharge home with homecare in the next 24hrs. *I reviewed and discussed this case with my attending Dr. Dick, whom has reviewed this chart and films and is in agreement with assessment and plan of care as outlined above. I have personally seen and examined the patient, performed the documentation and the assessment and plan as written. Number of minutes spent on the visit: 20m.
[2024-06-04] MEDS: ERGOCALCIFEROL 1,250 MCG (50,000 IU) CAPSULE PO SCH (08:41)
[2024-06-04] MEDS: RIVAROXABAN 2.5 MG TABLET PO SCH (08:43)
--- NOTE | 2024-06-04 11:22 | P.DS ---
Providers Date of admission: 05/31/24 23:22 Expected date of discharge: 06/04/24 Attending physician: Zbigniew Dick DO Consults: 05/31/24 23:22 Consult Physician Urgent Consulting Provider: Skinny Dunaway Reason/Comments: Medical Management Do you want consulting provider notified?: Yes, Notify in am Primary care physician: Selina Vincent Hospital Course: Hospital Course: The patient was evaluated preoperatively and found to have the diagnosis of T12 burst fracture. They underwent appropriate preoperative care and were willing to undergo the intended procedure. They underwent a successful T12 ORIF with T10-L1 decompression and stabilization, were recovered appropriately and sent to the floor. While on the floor they worked with physical therapy, occupational therapy and nursing to enhance their recovery experience. Their pain was well controlled through their stay and they were started on appropriate medications, DVT ppx modalities, activity and dietary needs. Daily labs were monitored closely, and transfusions were only used when necessary. Medicine as well as other consulting services have made their input and have helped with our team approach and multidisciplinary care. PT milestones have been met and passed and they have made the recommendation of home with home care for this patient and treating providers agree with this care path. The patient will be discharged home with appropriate medications, instructions and follow-up information and in stable condition. Patient Condition at Discharge: Good Plan - Discharge Summary Discharge Rx Participant: Yes New Discharge Prescriptions: New cefaDROXiL [Duricef] 500 mg PO Q12HR #10 cap Sennosides/Docusate Sodium [Senna Plus 8.6-50 mg Tablet] 2 each PO DAILY PRN #40 tab PRN Reason: Constipation Cyclobenzaprine [Flexeril] 10 mg PO TID PRN #40 tab PRN Reason: Muscle Spasm HYDROcodone/APAP 10-325MG [[place] 10-325] 1 tab PO Q4-6H PRN #40 tab PRN Reason: Breakthrough Pain No Action Atorvastatin Calcium [Lipitor] 40 mg PO HS #30 tablet Rivaroxaban [Xarelto] 2.5 mg PO BID #60 tablet Clopidogrel [Plavix] 75 mg PO DAILY #30 tablet Ferrous Sulfate [Feosol] 325 mg PO HS QUEtiapine FUMARATE [SEROquel] 300 mg PO HS Thiamine [Vitamin B-1] 100 mg PO DAILY Ipratropium Nebulized [Atrovent Nebulized 0.2 MG/ML] 0.5 mg INHALATION RT-QID PRN PRN Reason: Shortness Of Breath Albuterol Nebulized [Ventolin Nebulized] 2.5 mg INHALATION RT-QID PRN PRN Reason: Shortness Of Breath Omeprazole Magnesium [PriLOSEC OTC] 20 mg PO DAILY Aspirin 81 mg PO DAILY #30 tab oxyCODONE HCL [oxyCODONE HCL (IR)] 15 mg PO QID Fluticasone Nasal [place] [Flonase Nasal [place]] 2 spr EA NOSTRIL DAILY PRN PRN Reason: Congestion Budesonide/Formoterol Fumarate [Symbicort 80-4.5 Mcg Inhaler] 2 puff INHALATION RT-BID Gabapentin [Neurontin] 300 mg PO BID Ergocalciferol [Vitamin D2 (1250 Mcg = 39679 Iu)] 1,250 mcg PO MO Discharge Medication List Aspirin 81 mg PO DAILY #30 tab 04/04/21 [Rx] Atorvastatin Calcium [Lipitor] 40 mg PO HS #30 tablet 04/04/21 [Rx] Clopidogrel [Plavix] 75 mg PO DAILY #30 tablet 04/04/21 [Rx] Rivaroxaban [Xarelto] 2.5 mg PO BID #60 tablet 04/04/21 [Rx] Budesonide/Formoterol Fumarate [Symbicort 80-4.5 Mcg Inhaler] 2 puff INHALATION RT-BID 08/15/22 [History] Ferrous Sulfate [Feosol] 325 mg PO HS 08/15/22 [History] Fluticasone Nasal [place] [Flonase Nasal [place]] 2 spr EA NOSTRIL DAILY PRN 08/15/22 [History] QUEtiapine FUMARATE [SEROquel] 300 mg PO HS 08/15/22 [History] oxyCODONE HCL [oxyCODONE HCL (IR)] 15 mg PO QID 08/15/22 [History] Albuterol Nebulized [Ventolin Nebulized] 2.5 mg INHALATION RT-QID PRN 06/01/24 [History] Ergocalciferol [Vitamin D2 (1250 Mcg = 77151 Iu)] 1,250 mcg PO MO 06/01/24 [History] Gabapentin [Neurontin] 300 mg PO BID 06/01/24 [History] Ipratropium Nebulized [Atrovent Nebulized 0.2 MG/ML] 0.5 mg INHALATION RT-QID PRN 06/01/24 [History] Omeprazole Magnesium [PriLOSEC OTC] 20 mg PO DAILY 06/01/24 [History] Thiamine [Vitamin B-1] 100 mg PO DAILY 06/01/24 [History] Cyclobenzaprine [Flexeril] 10 mg PO TID PRN #40 tab 06/04/24 [Rx] HYDROcodone/APAP 10-325MG [[place] 10-325] 1 tab PO Q4-6H PRN #40 tab 06/04/24 [Rx] Sennosides/Docusate Sodium [Senna Plus 8.6-50 mg Tablet] 2 each PO DAILY PRN #40 tab 06/04/24 [Rx] cefaDROXiL [Duricef] 500 mg PO Q12HR #10 cap 06/04/24 [Rx] Follow up Appointment(s)/Referral(s): Selina Vincent MD [Primary Care Provider] - 1-2 days Zbigniew Dick DO [Doctor of Osteopathic Medicine] - 2 Weeks Activity/Diet/Wound Care/Special Instructions: Spine Discharge and Recovery Instructions Date of Surgery: 06/02/2024 Diagnosis: T12 burst fracture Procedure: T12 ORIF with T10-L1 decompression and stabilization Medications: See medication list All medication refills should be obtained through your primary care doctor or your clinic spine surgeon. Please discuss prescription refills at your follow up appointment. Do not call the hospital for medication refills. Activity: Encourage ambulation with assist of walker, Up and about 6-8x daily PT/OT daily work on balance, strength and mobility Up in chair with all meals Shower daily Brace: Use brace when up and about, do not wear in bed or shower Dressing: Leave your dressing in place for a total of 3 days post operatively. Then you may remove your dressing and leave open to air. Keep the area clean and if not able to keep area clean, then cover with sterile gauze and tape. Showering: You may shower 3 days after your procedure allowing soap and water to run over incision. Do not scrub. Do not soak. Blot dry. Follow up: Please confirm a follow up appointment with your surgeon 2 weeks post operatively. Please make an appointment to follow up with your PCP in 1-2 weeks after surgery for evaluation '3 phase, 3-week plan' POST OP WEEKS 1-3 1. Lifting/carrying/pushing/pulling limited to less than 5 pounds. 2. Do not sit for longer than 15 minutes at one time. Get up and walk around. Prolonged sitting is NOT advised. If you lay down, see if you can tolerate laying down on you front (belly side) 3. Walk for periods of 15 minutes = 1 mile but no longer; do it multiple times times each day. 4. Ice your low back after activity. POST OP WEEKS 3-6 1. Lifting limited to less than 20 pounds. 2. Do not sit for longer than 30 minutes at a time. Frequently change positions. Use a sit-to stand workstation or take frequent breaks from sitting if you have returned to work. 3. Walk for 30 minutes each day. If possible, do these three or more times a day POST OP WEEKS 6+ At your 6-week appointment we will give you a physical therapy referral to focus on a core stabilization and strengthening program. You should also work on leg & buttock strengthening, hamstring & quadriceps stretching, and continue a low impact aerobic activity program such as swimming, walking, or riding a stationary bicycle. During the initial 6 weeks after your surgery, you are at the highest risk of re-injuring your spine. You should generally avoid BLT's (bending, lifting and twisting combination motions) and follow the above guidelines to reduce the chance of reinjury. You can anticipate post op appointments in our office at approximately 3 weeks and 6 weeks after your surgery. INCISION CARE: If your incision is not draining you do NOT need to cover it with a dressing. Keep your incision clean, dry and intact. In most cases, we apply skin glue, rosario or sutures to the incision at the time of surgery. This will be like a crust or have the appearance of a scab and will fall off in time on its own. The stitches or rosario need to be removed at 3 weeks post op appointment. You may begin to shower 3 days after surgery (this allows the glue to caruso well). However, please avoid scrubbing the incision site or peeling off any of the skin glue. This will ensure optimal healing of your incision. Also, during this time avoid soaking the incision area in water - this includes swimming pools, hot tubs or baths. No ointments, lotions or oils on the incision until your surgeon allows. Leave rosario, sutures or glue in place. Neurological dysfunction that comes on suddenly can also be a sign of a stroke. Below some common symptoms of a stroke are listed: B - balance difficulty such as sudden onset walking or leaning to one side - NEW E - eye problem such as sudden double vision or trouble seeing on one side - NEW F - Facial weakness or numbness on one side - NEW A - Arm or leg weakness or numbness on one side - NEW S - Slurred speech or difficulty with word finding - NEW T - Time is BRAIN! Call 911 as soon as you recognize these symptoms Diet: Consume a regular diet rich in vegetables and lean protein such as chicken or fish. You should consume in a ratio of approximately 20% fats|40% carbohydrates|40%protein. Vegetables, sweet potatoes, brown rice or quinoa are examples of good carbohydrates. Chips, white bread, cookies and sweets/sugar are examples of bad carbohydrates. Limit your bad carbs, go wild with good carbs. 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 (1) Get Active. Physical activity can help people lose weight, control high blood pressure and cholesterol, feel emotionally better, and sleep better. (2) Control Cholesterol. Avoid a diet high in saturated fat, trans fat, & cholesterol. Limit whole milk & cream, ice cream, butter, egg yolks, processed meats (like sausage and hot dogs), and fatty meats. Choose healthy foods that are low in saturated fat, trans fat and cholesterol which include: Fruits and vegetables, fiber rich grain products (like whole grain pasta and brown rice), lean meat such as chicken, fish, nuts, seeds, and legumes. (3) Eat Better. Eat small portions. Shop at the grocery with a list and do not stray from it. Tips for a healthy diet include: Limit sodium intake to less than 1500mg daily, avoid prepackaged, processed, and fast foods, choose a diet rich in fruits, vegetables, and whole grain, high fiber foods, and limit saturated & cholesterol in your diet. (4) Manage Blood Pressure. If you have high blood pressure, you should have a cuff at home so that you can check your blood pressure regularly. Be sure you have a good cuff. An arm one is generally better than a wrist one. Bring the cuff to a doctor's appointment to validate that the measurements that your cuff are taking are accurate. Take your blood pressure twice daily when you are sitting down and relaxing. Record the numbers in a log and bring this log with you to your doctors' appointments. (5) Lose Weight if your BMI is above 25. A healthy BMI is between 19-25. To calculate Your BMI, you may use a Standard BMI Calculator on the NIH BMI website: <www.nhlbi.nih.gov/guidelines/obesity/BMI/bmicalc.htm>. Weigh oneself daily. If you are overweight, set a goal to lose weight. A pound a week loss if needed is a good target. (6) Reduce Blood Sugar. Limit foods and liquids with "added sugars." (Added sugars include sucrose, fructose, glucose, maltose, dextrose, high fructose corn syrup, corn syrup, concentrated fruit juice and honey). (7) Stop Smoking. If you smoke, quitting smoking is one of the best things that you can do for your health. Smoking increases your risk of heart attack, stroke, and peripheral vascular disease, which is a build-up of plaque in your arteries. Please discard all the cigarettes and lighters in your house. Have a plan for what you will do when you have the urge to smoke. Direct and second- hand smoke shortens your life as well as the lives of your family, friends and others around you. For your health and the health of those around you, please consider quitting! Proper Bending Body Mechanics: Maintain a wide stance with one foot slightly in front of the other. Keep your back straight. Bend utilizing the strength in your hips and knees. Do not bend at the waist. Maintain the lifted object at your waist-level close to your body. Avoid lifting weight that causes immediately pain or pain anywhere in the body afterwards. Smoking/Nicotine If there was ever one thing that you could do to increase your overall health, decrease your risk of cardiovascular problems by about 39% the second you make the choice, it is to STOP SMOKING. Your body's most instant gratification is the second you stop smoking. We have all heard the studies, read the articles but it is true, smoking is extremely bad for your overall health, and moreover it is detrimental to your bone health. Nicotine, IN ANY FORM, kills bone cells, prevents your body from healing fractures, and significantly prolongs healing after surgery. In spine surgery specifically, it increases your risk of not healing your bones to create a fusion and increases your risk of having a revision surgery due to this up to 60%. I know it is hard. I know it feels impossible. But there are ways. Take control of your life. We are here to help you through it. And when you are ready, ask us and we can direct you to help if you desire. Use the START Plan to Quit Smoking (please visit the [employer] website listed below for more information): S = Set a quit date. Choose a date within the next 2 weeks, so you have enough time to prepare without losing your motivation to quit. If you mainly smoke at work, quit on the weekend, so you have a few days to adjust to the change. T = Tell family, friends, and co-workers that you plan to quit. Let your friends and family in on your plan to quit smoking and tell them you need their support and encouragement to stop. Look for a quit daisy who wants to stop smoking as well. You can help each other get through the rough times. A = Anticipate and plan for the challenges you'll face while quitting. Most people who begin smoking again do so within the first 3 months. You can help yourself make it through by preparing ahead for common challenges, such as nicotine withdrawal and cigarette cravings. R = Remove cigarettes and other tobacco products from your home, car, and work. Throw away all your cigarettes (no emergency pack!), lighters, ashtrays, and matches. Wash your clothes and freshen up anything that smells like smoke. Shampoo your car, clean your drapes and carpet, and steam your furniture. T = Talk to your doctor about getting help to quit. Your doctor can prescribe medication to help with withdrawal and suggest other alternatives. If you can't see a doctor, you can get many products over the counter at your local pharmacy or grocery store, including the nicotine patch, nicotine lozenges, and nicotine gum. Resources for Quitting Smoking: <https://www.[place].gov/documents/[facility]/Quit_Tobacco_Resources_for_patients_313 480_7.pdf> Supplementation: Take recommended dosages of Vitamin D and Calcium to help fortify your bones and help them to heal. See your health maintenance packet for dosages and recommended levels. DVT/VTE prophylaxis: You will be given compression stockings from the hospital. Wear these daily for the first two weeks after surgery. You may take them off at night. You may be prescribed a medication to help thin your blood. Take this as directed. If you are not prescribed this medication, early and frequent ambulation has been shown to be the best prophylaxis to deep vein thrombosis and sequelae related to this event. Discharge Disposition: HOME WITH HOME HEALTH SERVICES
[2024-06-04] MEDS: PSYLLIUM HUSK 100% 6 GM PACKET PO SCH (12:41)
[2024-06-04 13:54] VITALS: BP 103/77; PULSE 66; RESP 17; TEMP 98
[2024-06-04] MEDS: HYDROcodone/APAP 10-325MG 1 EACH TAB PO PRN (14:30)
[2024-06-04 16:35] LABS: Glucose,Whole Blood 116 mg/dL (70-110)
--- NOTE | 2024-06-04 19:31 | P.PN ---
Progress Note - Text Progress Note Date: 06/04/24 - Chief Complaint Low back pain - History of Present Illness Pleasant 58-year-old patient who follows with Dr. Selina Vincent. Chronic medical condition include COPD, GERD, hyperlipidemia, hypertension, chronic back pain with spasm causing disability and a prior history of neck surgery. Cannot lay flat because of neck problems. Has had neck fusion surgery. About a month ago he fell from his front door onto the porch on the on his buttock. Since then has been having creasing pain. He is able to get around the house. Has pain going down the legs. No change in his bowel or bladder pattern. Patient does smoke a pack of cigarettes a day. At drinks 6 beer pack a night for a long time. Because of his back he is on disability. He had his CAT scan done on May 28 that showed a T12 burst fracture. Patient is asked to come into the ER and admitted for the same. No cardiac symptoms. June 03: Had come to see the patient yesterday had gone to the OR. Today sitting at the edge of the bed. His girlfriend and his son and daughter present. Complaining of significant pain. Spoke at length about his diet to him and his family. Patient on Valium for DT prophylaxis. June 04: Pain is better. Eating better. Patient did walk about 80 feet with a rolling walker. Discussed Social history: Lives with his girlfriend Mara. Drinks a sixpack of beer every night. Smokes a pack a day for many years. On disability. Physical examination: VITAL SIGNS: 98, 66, 17, 103 x 77, 90% room air GENERAL: BMI 20.2, sitting up edge of the bed,. Spider nevi on upper chest EYES: Pupils equal. Conjunctiva froylan l. HEENT: External appearance of nose and ears normal, oral cavity grossly normal. NECK: JVD not raised; masses not palpable. HEART: First and second heart sounds are normal; no edema. LUNGS: Respiratory rate normal; decreased breath sound. ABDOMEN: Soft, nontender, liver spleen not palpable, no masses palpable. PSYCH: Alert and oriented x3; mood and affect froylan l. MUSCULOSKELETAL:No Clubbing/cyanosis;muscles-grossly intact. . Dupuytren's contracture on both hands. Some missing digit. Dressing over the incision site. Erythema-ab agne, on right knee from sitting in front of the heater , INVESTIGATIONS, reviewed in the clinical context: June 03: White count 6.2 hemoglobin 11.1 platelets 188 sodium 133 potassium 3.7 creatinine 0.6 Iron 39. TIBC 238. Percent saturation 6.3. Transferrin 170. Ferritin 187 B12 399 folate 5 June 01, 2024: White count 3.1 hemoglobin 7.3 platelets 241 sodium 133 potassium 3.5 BUN 5 creatinine 0.66 albumin 2 May 31: White count 3.8 hemoglobin 8.5 sodium 130 potassium 3.8 Thoracolumbar MRI: Compression deformity of the T12 vertebral body with bony edema on inversion recovery sequences with 25 to 50% height loss. Mild retropulsion up to 5 mm. Some DJD changes. No significant spinal stenosis. Assessment plan: -Compression deformity of T12 vertebral body with bony edema, resulting from a fall in the buttock about a month ago. Subsequently patient has bilateral radiculopathy and some lower extremity paresis. No involvement of the bladder or the bowel. Surgical repair by Dr. Dick: June 02 Activity per Ortho -Prior chronic low back pain and spasms and also prior history of cervical spine fusion Resume home dose of oxycodone 15 mg 4 times daily. Stopped scheduled [place] 5. Use only as needed. -Alcohol use disorder Patient drinks 6 beers a night. Will do CIWA scale. Stop Valium. Thiamine. Folic acid. -Moderate protein calorie malnutrition Ensure 3 times daily Consult dietitian -Chronic nicotine dependence cigarette smoker Nicotine patch -Macrocytic anemia, of chronic disease Reviewed iron studies, B12, folate -GERD PPI -COPD in a smoker DuoNeb. As needed. Symbicort . Patient to follow-up with PCP upon discharge. Alcohol cessation discussed again. Thank you Dr. Dick - Past Medical History Past Medical History: COPD, GERD/Reflux, Hyperlipidemia, Hypertension, Vascular Disorder Additional Past Medical History / Comment(s): back pain & spasms,anemia. hx neck surgery,. cant lay flat with neck issues, need to be propped up. becomes dizzy when sits up @times History of Any Multi-Drug Resistant Organisms: None Reported Past Surgical History: Hernia Repair, Orthopedic Surgery Additional Past Surgical History / Comment(s): amputation rt index finger,reattachment of the lt hand thumb, neck fusion, attempted neck fusion with infection to larynx, lt hand surgery, lt carpal tunnel surgery, release in lt elbow, aortogram Past Anesthesia/Blood Transfusion Reactions: Previous Problems w/ Anesthesia Additional Past Anesthesia/Blood Transfusion Reaction / Comm: woke up during carpal tunnel surgery, woke up @end of neck surgery before was supposed to,. unable to lay flat d/t neck pain-needs to have head elevated Past Psychological History: Panic Disorder, PTSD Smoking Status: Current every day smoker Past Alcohol Use History: Abuse, Daily, Heavy Past Drug Use History: None Reported
[2024-06-04] MEDS ORDERED: diazePAM 2 MG TAB PO SCH (21:00)
== END 2024-06-04 18:22 | disposition home health service (06) | DRG 304 ==
LOC: EC 18:05 → 4SSUR 23:22
PROVIDERS: ADMIT Orthopaedic Surgery; ATTEND Orthopaedic Surgery
PROC: 0PS404Z Reposition Thoracic Vertebra with Internal Fixation Device, Open Approach (ICD-10-PCS; principal; 2024-06-02 08:00)
PROC: 0PU40JZ Supplement Thoracic Vertebra with Synthetic Substitute, Open Approach (ICD-10-PCS; principal; 2024-06-02 08:00)
PROC: 01N80ZZ Release Thoracic Nerve, Open Approach (ICD-10-PCS; principal; 2024-06-02 08:00)
PROC: 0QU00JZ Supplement Lumbar Vertebra with Synthetic Substitute, Open Approach (ICD-10-PCS; principal; 2024-06-02 08:00)
PROC: 01NB0ZZ Release Lumbar Nerve, Open Approach (ICD-10-PCS; principal; 2024-06-02 08:00)
PROC: 0RG7071 Fusion of 2 to 7 Thoracic Vertebral Joints with Autologous Tissue Substitute, Posterior Approach, Posterior Column, Open Approach (ICD-10-PCS; principal; 2024-06-02 08:00)
PROC: 0RGA071 Fusion of Thoracolumbar Vertebral Joint with Autologous Tissue Substitute, Posterior Approach, Posterior Column, Open Approach (ICD-10-PCS; principal; 2024-06-02 08:00)
PROC: 0SG0071 Fusion of Lumbar Vertebral Joint with Autologous Tissue Substitute, Posterior Approach, Posterior Column, Open Approach (ICD-10-PCS; principal; 2024-06-02 08:00)
DX: S22.081A Stable burst fracture of T11-T12 vertebra, initial encounter for closed fracture (principal); M48.05 Spinal stenosis, thoracolumbar region; W10.9XXA Fall (on) (from) unspecified stairs and steps, initial encounter; E78.5 Hyperlipidemia, unspecified; F17.210 Nicotine dependence, cigarettes, uncomplicated; F41.0 Panic disorder [episodic paroxysmal anxiety]; F43.10 Post-traumatic stress disorder, unspecified; G89.29 Other chronic pain; I10 Essential (primary) hypertension; I73.9 Peripheral vascular disease, unspecified; J44.9 Chronic obstructive pulmonary disease, unspecified; K21.9 Gastro-esophageal reflux disease without esophagitis; E44.0 Moderate protein-calorie malnutrition; M40.209 Unspecified kyphosis, site unspecified; M54.10 Radiculopathy, site unspecified; Z95.828 Presence of other vascular implants and grafts; Z74.01 Bed confinement status; Z79.02 Long term (current) use of antithrombotics/antiplatelets; Z79.51 Long term (current) use of inhaled steroids; Z79.82 Long term (current) use of aspirin; Z79.899 Other long term (current) drug therapy; Z91.81 History of falling; Z98.1 Arthrodesis status; Z71.3 Dietary counseling and surveillance; Z68.20 Body mass index [BMI] 20.0-20.9, adult; Z28.310 Unvaccinated for COVID-19
CPT/HCPCS: 36430; 71045; 72070; 72128; 72131; 72146; 72148; 76705; 80048; 80053; 82607; 82728; 82746; 83540; 83550; 85025; 85610; 85730; 86850; 86900; 86901; 86920; 94640; 96372; 99285